=== PATIENT | male | born 1965 | race Caucasian/White ===

== ENCOUNTER 2018-07-31 13:01 | Emergency (ER) | payer BC, SELFPAY ==
[2018-07-31 13:02] VITALS: BP 151/77; PULSE 84; RESP 16; TEMP 36.4; O2SAT 98; BMI 28.0
--- NOTE | 2018-07-31 14:00 | ED.DCSUM_ITS ---
- ER Visit Summary Date of Service: 07/31/18 Chief Complaint: Right long finger injury versus a sledgehammer History of Present Illness: The patient is a 53 M who states he is ambidextrous. Was using a sledgehammer in his left hand at home building something and accidentally hit his right long finger. He has a laceration just proximal to the nail on the dorsal side. Denies other injuries. Tetanus is greater than 10 years old and will need to be updated. Physical Examination: Vital signs stable. Afebrile. H EENT exam unremarkable. Neck nontender no lymphadenopathy. Lungs clear to auscultation bilaterally. Heart regular rhythm no murmur. Chest wall nontender. Abdomen soft nontender. Right hand the long finger on the dorsal surface just proximal nail he has a C -shaped laceration. There does appear to be injury to that nail itself is subungual hematoma. He has full range of motion all digits of the hand. Neurovascularly intact with cap refill and touch sensation. Test Results: X-ray right long finger 2 views open fracture mid distal phalanx. Emergency Department Course and Treatment: Tetanus shot updated. Procedure note : Right long finger laceration. Digital block by ER using lidocaine. I removed the nail. There was significant damage to the nail matrix and the nail bed. Using 4 simple interrupted 5-0 Ethilon sutures I pulled the laceration back together which gave good bone coverage. Patient tolerated procedure well. He understands extremely high likelihood that he never has a nail grow there again. Nurses will clean and dress the wound. The situation and tube gauze. Prior laceration repair the wound was cleaned with iodine and copiously irrigated and explored with saline. Patient be treated with [place] for pain 20 no refill. Ice and elevate. Keflex 4 times a day for 5 days try to prevent infection. Follow-up with Dr.Anne Metzger Impression: Right long finger open fracture distal phalanx Right long finger nail bed and laceration repair of 2 cm. Tetanus updated This note was generated with [employer] dictation software. It may contain incorrect words, spelling, and punctuation that were not noted in review of the chart prior to signing ED Disposition - Plan for ED Patient: Disposition: Home or Assisted Living Chief Complaint: Trauma Instructions: ED Fx Finger Open Prescriptions: Cephalexin [Keflex] 500 mg PO Q6 #20 cap Hydrocodone/Acetaminophen [[place] 5-325 Tablet] 1 - 2 ea PO 4X/DAY PRN PRN 3 Days #20 tab PRN Reason: Pain Referrals: Jason Chambers MD [Primary Care Provider] - Additional Instructions: Keep wound clean and no soaking in dirty water. Ice and elevate. Motrin and/or [place] for pain. Keep wound clean and dry. Watch for any signs of infection. Finish the antibiotic.
--- NOTE | 2018-07-31 14:10 | ED.RN ---
Addendum entered by Stephanie Del Toro 07/31/18 14:13: LOT #[id number], [id number] Original Note: ADACEL GIVEN BY THIS NURSE PER VOR[facility] BY DR DURHAM.
[2018-07-31] MEDS: HYDROcodone Bitartrate/Apap 5/325 Tablet PO (14:12)
--- NOTE | 2018-07-31 15:10 | ED.DEP ---
ED Disposition - Plan for ED Patient: Disposition: Home or Assisted Living Chief Complaint: Trauma Instructions: ED Fx Finger Open Prescriptions: Cephalexin [Keflex] 500 mg PO Q6 #20 cap Hydrocodone/Acetaminophen [[place] 5-325 Tablet] 1 - 2 ea PO 4X/DAY PRN PRN 3 Days #20 tab PRN Reason: Pain Referrals: Bailey Metzger DO [STAFF PHYSICIAN] - As soon as possible Additional Instructions: Keep wound clean and no soaking in dirty water. Ice and elevate. Motrin and/or [place] for pain. Keep wound clean and dry. Watch for any signs of infection. Finish the antibiotic. Stitches out in 10-14 days.
--- NOTE | 2018-07-31 15:31 | ED.RN ---
[facility] CHARTED IN PREVIOUS NURSING NOTE.
[2018-07-31 15:57] VITALS: BP 145/101; PULSE 68; RESP 18; O2SAT 94
== END 2018-07-31 15:59 | disposition home or self-care (01) ==
PROVIDERS: Emergency Provider Emergency Medicine; Family Provider Family Medicine; PCP Family Medicine
DX: S62.632B Displaced fracture of distal phalanx of right middle finger, initial encounter for open fracture (principal); W22.8XXA Striking against or struck by other objects, initial encounter; Y93.9 Activity, unspecified; Y92.9 Unspecified place or not applicable; Y99.9 Unspecified external cause status; Z23 Encounter for immunization; F32.9 Major depressive disorder, single episode, unspecified; Z72.0 Tobacco use; Z79.899 Other long term (current) drug therapy
CPT/HCPCS: 11750; 11760; 73140; 90471; 90715; 99284

== ENCOUNTER 2018-08-14 18:00 | Outpatient (RCR) | payer BC, SELFPAY ==
--- NOTE | 2018-08-09 09:15 | HP.OTEVAL_ITS ---
Patient's Visit Information GRICELDA EID is a 53 year old M, referred to Occupational Therapy by FROILAN Rene, with a diagnosis of right MF distal phalanx fx-tuff fx.. Date of Evaluation: 08/09/18 Occupational Therapist: Etta Mariscal, MIHAELAR/Zaki, CHT - Subjective Subjective: Pt state on Tuesday 9- pt hit his finger with a hammer. went to ER and refered to [facility] for follow up. 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 Pt states his finger does throb most of the time- he has been attempting to type and use his hand for all BADls and IADLS and has noticed he is unable to perfrom the tasks as fast or as easily. pt works an hour and a half a [address] from [place]. would like HEP one stitches are removed. - Pain right MF 4 Pain Intensity Range: 0, 8, 9 - ROM ROM Comments: pt demo limited right MF DIP ROM at this time- PIP is WFL. left WNL - Strength Strength Comments: will test later date-as fx is healing - Hand/Wrist Evaluation Total Score of Pain & Functional Sections: 63 - Goals Goal:: pt will report pain no greater than 2/10 with use of right hand with BADLs and IADLs by D/C Goal:: pt will report no right MF tip sensitivity while performing ADLS and IADLS by d/c Goal:: Stitches removed and pt demo understanding of wound care until finger tip heals by d/c Goal:: pt will demo understanding or splint use by end on 1st visit. - Rehabilitation General Assessment: pt arrives with splint on right MF-stitches intact nail on- pt demo need to have stiches removed. theapist able to remove two stitches at this time. pt to return for further wound care and stitch removal 1x week for 2 weeks. if pt has questions he is to call/or schedule earlier apt. onece stitches are removed pt will be instructed in HEP of wound care, ROM and PRE to be intitiated at week 4. pt demo understanding and agree to this POC. Rehabilitation Potential: Good - Anticipated Interventions Anticipated Interventions: A/AAROM/PROM, Triggerpoint Release, Desensitization, Sensory Retraining, Wound Care, Orthoses - Visit Plan Frequency: 1x/Week Duration: 2 Weeks TEXT: Thank you for the opportunity to evaluate your patient. For Medicare and Medicare HMO plans, please review the plan of care and approve it. It will need to be FAXED BACK to us at [phone] for Medicare purposes. Please let me know if there are questions or concerns regarding this plan of care. Physician Signature: Date:
--- NOTE | 2018-10-10 08:12 | HP.OT.NRP ---
HP - Discharge Summary - Patient Information GRICELDA EID was seen in my office for initial evaluation on 08/09/18. The following Plan of Care was established for this patient: Initial Frequency: 1x/Week Initial Duration: 2 Weeks - Anticipated Interventions Anticipated Interventions: A/AAROM/PROM, Triggerpoint Release, Desensitization, Sensory Retraining, Wound Care, Orthoses This patient was last seen in our office 08/14/18. Pertinent comments regarding their Occupational therapy will appear below: Pt. was seen for 2 visits only, pt did not return or schedule more visits. Due to timelapse in treatment session pt D/C at this time. At this point I will be discontinuing this patient from occupational therapy. I would be happy to see this patient again in the future if found appropriate by the physician. Thank you! Etta Mariscal, OTR/L, CHT
== END 2018-08-14 19:00 | disposition home or self-care (01) ==
LOC: OT 18:00
PROVIDERS: Family Provider Family Medicine; PCP Family Medicine; Visit Provider Physician Assistant
DX: S62.632D Displaced fracture of distal phalanx of right middle finger, subsequent encounter for fracture with routine healing (principal)
CPT/HCPCS: 97166; 97530

== ENCOUNTER 2018-10-02 18:14 | Emergency (ER) | payer BC, SELFPAY ==
[2018-10-02 18:15] VITALS: BP 119/85; PULSE 76; RESP 20; TEMP 37.2; O2SAT 95; BMI 28.1
[2018-10-02 19:07] VITALS: RESP 20; O2SAT 97
[2018-10-02 19:10] VITALS: O2SAT 97
[2018-10-02] MEDS: predniSONE 20 MG Tablet 60 MG PO (19:24)
--- NOTE | 2018-10-02 19:55 | RAD_ITS ---
STUDY: X-RAY CHEST REASON FOR EXAM: Male, 53 years old. Cough, SOB. TECHNIQUE: PA and lateral chest. COMPARISON: 03/31/2009. FINDINGS: The lungs are clear and expanded. There is no demonstrated pleural abnormality. Normal size heart. Normal mediastinum and khris. Normal visualized pulmonary arteries. Normal visualized aortic arch and descending thoracic aorta. Normal visualized thoracic spine. Normal visualized ribs, clavicles, and shoulders. There is no demonstrated abnormality of the visualized soft tissue structures of the upper abdomen. RAD/Chest PA and Lateral IMPRESSION: Normal x-ray examination of the chest. Electronically Signed: Radha Jacome MD at 20:21 EST Tel , Service support ,
[2018-10-02] MEDS: Albuterol 2.5 MG/3 ML VIAL.NEB. INHALATION ×2 (20:21)
[2018-10-02] MEDS: Ipratropium/Albuterol Sulfate 3 ML AMPUL.NEB INHALATION (20:21)
[2018-10-02 20:23] VITALS: PULSE 70; PULSE 74; RESP 16
--- NOTE | 2018-10-02 21:14 | ED.RN ---
Called RT at [phone] for albuterol dispense with education.
--- NOTE | 2018-10-02 21:19 | ED.VISSUMM ---
- ER Visit Summary Date of Service: 10/02/18 Chief Complaint: Cough, wheezing History of Present Illness: The patient is a 53 M with a one-week history of cough, congestion, sneezing. It then moved down into chest congestion approximately 4 days ago. Patient reports clear or sometimes yellow colored sputum with cough. He reports his temperature has been low. He does report history of frequent pneumonia however his last episode of pneumonia was approximately 15 years ago. Patient is a long-term smoker but has never been diagnosed with COPD. Physical Examination: Blood pressure is 119/85, temperature 98.9, heart rate 76, respiratory rate 20, pulse ox 97% on room air. Patient sitting upright in bed no acute distress. He is nontoxic appearing. Heart is regular rate and rhythm. Lung sounds with expiratory wheezes throughout. Abdomen is soft nontender. Extremity examination was no calf tenderness or edema. Test Results: Two-view chest x-ray is unremarkable with no focal infiltrate. Emergency Department Course and Treatment: Patient was given a cycle of aerosols along with p.o. prednisone. On repeat evaluation wheezing is significantly improved. On final repeat evaluation wheezing had started to increase again. He was given an albuterol MDI with spacer. He is placed on a prednisone taper at home and will be placed on doxycycline. My suspicion is that he has underlying COPD that is yet to be diagnosed. Treatment Plan: [] Disposition: Discharge Impression: Bronchitis with suspected COPD This note was generated with [employer] dictation software. It may contain incorrect words, spelling, and punctuation that were not noted in review of the chart prior to signing ED Disposition - Plan for ED Patient: Disposition: Home or Assisted Living Chief Complaint: Shortness of Breath Instructions: Acute Bronchitis Prescriptions: Prednisone 10 mg PO UD #33 tablet Doxycycline Monohydrate 100 mg PO BID #20 capsule Referrals: Jason Chambers MD [Primary Care Provider] - 5-7 Days
[2018-10-02] MEDS: Doxycycline 100 MG CAPSULE PO (21:27)
[2018-10-02 21:29] VITALS: BP 120/86; PULSE 80; RESP 18; O2SAT 96
== END 2018-10-02 21:29 | disposition home or self-care (01) ==
PROVIDERS: Emergency Provider Emergency Medicine; Family Provider Family Medicine; PCP Family Medicine
DX: J40 Bronchitis, not specified as acute or chronic (principal); F17.200 Nicotine dependence, unspecified, uncomplicated; F32.9 Major depressive disorder, single episode, unspecified; Z79.899 Other long term (current) drug therapy; Z87.01 Personal history of pneumonia (recurrent)
CPT/HCPCS: 71046; 94640; 99283

== ENCOUNTER → 2018-10-17 14:54 | Outpatient (CLI) | payer BC, SELFPAY ==
[2018-10-02 18:15] VITALS: BMI 28.1
--- NOTE | 2018-10-17 14:56 | RAD_ITS ---
STUDY: X-RAY - RIGHT HAND, ATTENTION THIRD FINGER REASON FOR EXAM: Male, 53 years old. Fracture TECHNIQUE: 3 view(s) of the finger were obtained. COMPARISON: None. FINDINGS: Normal metacarpal head. Normal metacarpophalangeal joint. Normal proximal phalanx. Normal middle phalanx. Acute comminuted fracture of the distal phalanx of the diaphysis and distal metaphyses. Hairline extension into the proximal metaphyses. No disruption of articular surface. Adjacent soft tissue injury. There is no radiopaque foreign body. Normal proximal interphalangeal joint. Normal distal interphalangeal joint. RAD/Finger(s) Min 2 Views IMPRESSION: Acute comminuted fracture of the distal third phalanx. Electronically Signed: Irene Mitchell MD at 7:09 EST , Service support ,
== END ==
PROVIDERS: Family Provider Family Medicine; PCP Family Medicine; Visit Provider Orthopaedic Surgery
DX: S62.639B Displaced fracture of distal phalanx of unspecified finger, initial encounter for open fracture (principal); X58.XXXA Exposure to other specified factors, initial encounter; Y93.9 Activity, unspecified; Y92.9 Unspecified place or not applicable; Y99.9 Unspecified external cause status
CPT/HCPCS: 73140

== ENCOUNTER 2018-11-15 07:08 | Day surgery (SDC) | payer BC, SELFPAY ==
[2018-11-15 07:29] VITALS: BP 122/83; PULSE 79; RESP 18; TEMP 36.8; O2SAT 98; BMI 27.1
[2018-11-15] MEDS: Cefadroxil 500 MG CAPSULE 1000 MG PO (07:35)
--- NOTE | 2018-11-15 08:15 | DCINST_ITS ---
Discharge Diet: No Restrictions - follow up with OT in one week for initial dressing change, follow up in our office with jose conner or myself in 2 weeks, call with concerns Discharge Activity: May Not Drive May shower in (days): 1 Ice area for (Minutes): 20 - Every hour while awake. Weight Bearing Status: Weight bearing as tolerated Keep extremity elevated above heart level: Operative Extremity Call your doctor if your incision/area has: Continuous Slow Oozing, Sudden Increased Bleeding, Increased Pain/ Swelling, Increased Redness, Foul Smelling Discharge Call your doctor if you observe: Fever of 101 or Higher, Coldness, Increased Pain, Numbness or Tingling, Change in Color, Calf discomfort Allergies/Adverse Reactions: Allergies No Known Allergies Allergy (Verified 11/13/18 10:51) Medications to take at Discharge Duloxetine Hcl [Cymbalta] 60 - 120 mg PO DAILY 07/31/18 Primary Care Physician: Jason Chambers MD [Primary Care Provider] - Test Results: Test results from this visit will be discussed in further detail at your follow- up appointment, if applicable. Please Follow Up With: Bailey Metzger, - [phone]
--- NOTE | 2018-11-15 08:15 | PCM.OPRPT ---
Report of Operation Date of Procedure: 11/15/18 Pre-Operative Diagnosis: right middle finger dystrophic nail Post-Operative Diagnosis: same Surgery/Procedure Performed:: right middle finger nailbed removal/chemical ablation of matrix Type of Anesthesia:: Local Specimen's removed: tt- 8 mins Estimated Blood Loss (mL): minimal Fluids Replaced: - Description of Procedure: Preop note Patient is a 53-year-old male who had a crush injury to his right middle finger. Patient's noted that the nail started to grow and was painful and sharp and was catching on things affecting his activities of daily living. Risks benefits and alternatives were discussed with patient. Risks including but not limited to blood loss, blood clot, infection, neurovascular, failure procedure, loss of life and loss of limb. Patient is aware like to proceed with removal of nail matricectomy the risk is that the nail returns however we will use silver nitrate this was discussed with patient as well. Operative note Patient seen and evaluated preop holding area. Right middle finger was preoperatively received a local block by myself. He then was brought to the operating placed supine on the operating table. Patient received p.o. antibiotics in the preop holding area as well. Patient brought to the operating room placed upon the operating table. All bony prominences well-padded SCDs placed on his bilateral lower extremity. We then prepped the right arm in standard fashion timeout was performed. We then used a freer elevator to elevate the entire nail and down to the matrix. Then used a knife to truncated at the ulnar border was a little bit tight in that area. His nailbed itself was quite jagged and scarred in from the initial crush injury that he is sustained. We then debrided this any kind of rough area back with with a knife and [place]. We then used silver nitrate to ablate the matrix for chemical matricectomy. We use a slight bit of irrigation just to clean off any kind of wound ears. Issues. Sterile dressings were applied tourniquet was removed for total working time of 8 minutes. Patient tolerated procedure well no comp occasions transferred to recovery room in stable condition. Next Postoperative note Dressing intact Follow-up in 1 week with occupational therapy for dressing change Pharmacy has prescriptions Call with increased pain numbness tingling or further issues arise This note was generated with [employer] software. It may contain incorrect words, spelling, and punctuation that were not noted in checking the note before signing.
[2018-11-15] MEDS: Mupirocin Ointment 22gm Tube 1 APPLIC (08:34)
[2018-11-15] MEDS: Silver Nitrate (BKC) 1 EACH (08:34)
--- OUTSIDE RECORDS SUMMARY | 2019-02-16 07:59 | XMS RPT_ITS ---
:1965 Author Organization [place] Support Name Relationship Address Phone [employer] Unavailable [address] + [address] [place] [address] KEMAR EIDKY Unavailable [address] + [place] [address] [employer] Unavailable [address] + [address] [place] [address] KEMAR EIDKY Unavailable [address] + [place] [address] [employer] Unavailable [address] + [address] [place], [place] [address] RAGINI, TOBY Unavailable [address] + [place] [address] [employer] Unavailable [address] + [address] [place] [id number] RAGINI, TOBY Unavailable [address] + [place] [address] [employer] Unavailable [address] + [address] [place] [address] KEMAR EIDKY Unavailable [address] + [place] [address] [employer] Unavailable [address] + [address] [place] [id number] RAGINI TOBY Unavailable [address] + [place] [address] [employer] Unavailable [address] + [address] [place] [id number] RAGINI TOBY Unavailable [address] + [place], [facility] [employer] Unavailable [address] + [address] [place] [address] POMARICO, TOBY Unavailable [address] + [place] [address] [employer] Unavailable [address] + [address] [place] [address] POMARICO, TOBY Unavailable [address] + [place] [address] [employer] Unavailable [address] + [address] [place] [address] POMARICO, TOBY Unavailable [address] + [place] [address] [employer] Unavailable [address] + [address] [place] [address] POMARICO, TOBY Unavailable [address] + [place] [address] [employer] Unavailable [address] + [address] [place] [address] POMARICO, TOBY Unavailable [address] + [place] [address] Care Team Providers Name Role Phone Bailey Metzger Attending Unavailable Bailey Metzger Referring Unavailable [employer], Jason Primary Care Unavailable Bailey Metzger Attending Unavailable [employer], Jason Referring Unavailable [employer], Jason Primary Care Unavailable Tommie Kenny Attending Unavailable Delon Reno Attending Unavailable [employer], Jason Referring Unavailable [employer], Jason Primary Care Unavailable Delon Reno Attending Unavailable [employer], Jason Referring Unavailable Delon Reno Attending Unavailable [employer], Jason Primary Care Unavailable Delon Reno Attending Unavailable Delon Reno Referring Unavailable [employer], Jason Primary Care Unavailable Delon Reno Attending Unavailable [employer], Jason Referring Unavailable [employer], Jason Primary Care Unavailable [employer], Jason Primary Care Unavailable Keyonna Verdin Attending Unavailable Bailey Metzger Attending Unavailable [employer], Jason Referring Unavailable Bailey Metzger Attending Unavailable [employer], Jason Primary Care Unavailable Bailey Metzger Attending Unavailable Bailey Metzger Referring Unavailable [employer], Jason Primary Care Unavailable PROBLEMS PROBLEMS DATE TYPE CONDITION / CODE ATTENDING STATUS SOURCE 12/11/2018 Unknown S69.90XA - Delon Reno Active [facility] Unspecified injury Community of unspecified Hospital wrist, hand and Repository finger(s), initial encounter / S69.90XA(ICD-10) 12/11/2018 Unknown Z98.890 - Other [place], Active [place] specified [facility] postprocedural Hospital states / Repository Z98.890(ICD-10) 11/15/2018 Unknown G89.18 - Other acute [place]lli, Active [place] [facility] / G89.18(ICD-10) Hospital Repository 10/17/2018 Unknown S62.639B - Displaced [place]lli, Active [place] fracture of distal Bailey Community phalanx of Hospital unspecified finger, Repository initial encounter for open fracture / S62.639B(ICD-10) 10/10/2018 Unknown S62.632D - Displaced Delon Reno Active [place] fracture of distal Community phalanx of right Hospital middle finger, Repository subsequent encounter for fracture with routine healing / S62.632D(ICD-10) 07/31/2018 Unknown S62.609B - Fracture Tommie Kenny Active [place] of unspecified Community phalanx of Hospital unspecified finger, Repository initial encounter for open fracture / S62.609B(ICD-10) PROCEDURES PROCEDURES No Procedure Records FoundRESULTS RESULTS ORTHOPEDIC VISIT Observed: 12/15/2018 Status: F Source: WEST REPORT 3:56 PM [facility] REPOSITORY [facility] [address] [place] [address] OFFICE VISIT Date of Service: 12/11/18 MR#: [id number] Acct: [id number] Name: GRICELDA EID Rep #: [id number] : 1965 Provider: FROILAN Reno Age/Sex: 53/M [place] [facility] [place] [place]: Signed Intake Vital Signs12/11/18 Body Mass Index (BMI) 27.1 Intake Visit Reasons: Right Hand Is patient in pain?: Yes Pain scale (1-10): 4 Allergies No Known Allergies Allergy (Verified 11/13/18 10:51) Medications Duloxetine Hcl [Cymbalta] 60 - 120 mg PO DAILY 07/31/18 [History Confirmed 11/13/18] cephalexin 500 mg tablet 500 mg PO Q6H #28 tab 12/11/18 [Rx Confirmed 12/11/18] doxycycline hyclate 100 mg capsule 100 mg PO BID #14 cap 12/11/18 [Rx Confirmed 12/11/18] COUNT INCLUDES THE [facility] Surgical History s/p right finger nail removal (Acute) Social History Smoking Status: Current every day smoker HPI Right Hand: Details: GRICELDA EID is a 53 year old M here today for f/u right middle finger nail bed removal. He has been soaking at home and going to OT. He completed his antibiotics on tuesday and on tuesday he was snow blowing his driveway, after he removed his bandaid and it was soaked in blood. He has been having clear fluid oozing but now it is bloody and yellow tinged. It is painful to touch and he has redness and swelling at the distal finger. Ortho Exam Right Wrist/Hand Skin/Wound: Yes Swelling, No Ecchymosis, Yes wound cleaned, No nail intact Contralateral Normal: Yes Right Wrist: No ROM-Extension 0-60, ROM-Flexion 0-80, ROM- Pronation 0-80 or ROM-Supination 0-90 Sensation: Radial: I, Ulnar: I, Median: I WRIST: Today in the office patient does have some mild swelling of the distal phalanx of the right middle finger. Patient does have a black colored eschar over the proximal nail bed that is touching the adjacent cuticle. This eschar is as a result of the silver nitrate used in the procedure. There is no evident purulent discharge noted at this time. On palpation I am able to produce a little very clear fluid with minor blood coloration from proximal and just lateral to the eschar. The skin that is swollen is slightly more pink at the same time no major erythema. He does have some tenderness on palpation of the proximal nail bed over the eschar. He has some tenderness on the extensor surface of the distal phalanx as well. Flexion and extension is intact. He does have normal sensation throughout the finger. Left Wrist/Hand Skin/Wound: Yes Swelling, No Ecchymosis Assessment AND Plan Problems 1. Open nondisplaced fracture of distal phalanx of right middle finger with routine healing, subsequent encounter I02.636T 2. Orthopedic aftercare Z47.89 Plan At this point patient appears to be doing pretty well post nail matrixectomy. 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 He thought that there was a little bit of pus discharge from the area but was a small amount and states now it is all clear with some blood mixed in. At this time I was able to debride some of the proximal SR to get to the underlying bed in order to culture the base. Also with palpation was able to get some clear discharge to present itself and was also cultured. Does not appear that this is infectious possibly irritated from just overuse. We will have him start antibiotics and will notify him of his culture results once available. He can continue with normal care instructions given for wound care. Orders Orders: Medications New: Plan Detail Follow Up 1 Week Coding Level of Care Code Global Post Op Diagnoses Open nondisplaced fracture of distal phalanx of right middle finger with routine healing, subsequent encounter S62.662D Encounter type: subsequent encounter Finger: middle finger Fracture alignment: nondisplaced Fracture healing: with routine healing Orthopedic aftercare Z47.89 12/15/18 1556 <Electronically signed by Delon MCGOVERN> Date Delon MCGOVERN Cosigner Signature: Date (if applicable) CC: Observed: 12/11/2018 Status: F Source: [facility] CULTURE, DEEP WOUND 4:29 PM [facility] REPOSITORY Comments: Anaerobic and Aerobic bacteria Gram Stain Gram Stain No organisms seen Rare Red Blood Cells Wound Culture No growth aerobically. Cult, Anaerobic No growth in 5 days. Performed By: #### M100.1500 #### [facility] [address] [place], [address] ORTHOPEDIC VISIT Observed: 11/30/2018 Status: F Source: JULIO REPORT 2:49 PM [facility] REPOSITORY [facility] [address] [place] [address] OFFICE VISIT Date of Service: 11/30/18 MR#: [id number] Acct: [id number] Name: GRICELDA EID Rep #: [id number] : 1965 Provider: Bailey Metzger DO Age/Sex: 53/M [place] [facility] [place] Status: Signed Intake Intake Visit Reasons: right finger Allergies No Known Allergies Allergy (Verified 11/13/18 10:51) Medications Duloxetine Hcl [Cymbalta] 60 - 120 mg PO DAILY 07/31/18 [History Confirmed 11/13/18] cephalexin 500 mg capsule 500 mg PO .QID 10 Days #40 cap 11/30/18 [Rx Confirmed 11/30/18] PFSH Surgical History s/p right finger nail removal (Acute) Social History Smoking Status: Current every day smoker HPI right finger: Details: GRICELDA EID is a 53 year old M here today for s/p right finger nail removal dos 11/15/18. Patient notes that he is doing okay but has tenderness over his nailbed. He denies taking any pain medication. He has been keeping his finger clean and dry. Patient denies any fevers or chills. He states that he continues to have some drainage from his nail. Patient denies any OT. Denies numbness, tingling or other associated symptoms. ROS Const Reports system reviewed and no additional complaints, except as docu Eyes Reports system reviewed and no additional complaints, except as docu ENT Reports system reviewed and no additional complaints, except as docu Card Reports system reviewed and no additional complaints, except as docu Resp Reports system reviewed and no additional complaints, except as docu GI Reports system reviewed and no additional complaints, except as docu Reports system reviewed and no additional complaints, except as docu Skin/Breast Reports system reviewed and no additional complaints, except as docu Neuro Yes system reviewed and no additional complaints, except as docu Psych Reports system reviewed and no additional complaints, except as docu Endo Reports system reviewed and no additional complaints, except as docu Ortho Exam Right Wrist/Hand Motor: EPL: 5, FDP-2: 5, 1st Dorsal Interosseous: 5, APB: 5 Sensation: Radial: I, Ulnar: I, Median: I WRIST: right middle finger drainage, left index finger chronic hematoma and nail avulsion Assessment AND Plan 1. Orthopedic aftercare Z47.89 Plan patient has some drainage at nailbed removal site so was placed on keflex for 10 days ([facility]) and sent today to OT for soaks/debridement/etc. patient will return in 10 days with jose wayt for further evaluation of surgical site. patient told if increased pain or redness next week may have to go to ER as office is closed. patient will also have left had index finger looked at for possible nail debridement for chronic hematoma/avulsion. All questions answered. Patient in agreement of plan. Follow up in 10 days with jose wayt or sooner if pain, swelling, numbness or associated symptoms, or concerns develop. Personally reviewed the surgical images if available, the surgery procedure and reviewed the post op care instructions. Monitor for signs of infection, redness, warmth, swelling in excess, drainage, opening of incision site/sites, and/or fever. All questions answered. Patient in agreement of plan.Follow up in 4 weeks for 6 week post op or sooner if pain, swelling, numbness or associated symptoms, or concerns develop. Plan Detail Other Medications New: cephalexin take one tab by mouth with [id number] mg PO .QID 10 days 40 caps 0RF infection every 6 hours for 10 days, call with concern s Coding Level of Care Code Global Post Op Diagnoses Orthopedic aftercare Z47.89 11/30/18 1449 <Electronically signed by Bailey Metzger DO> Date Bailey Ramsay Signature: Date (if applicable) CC: OT GENERAL EVALUATION Observed: 11/23/2018 Status: F Source: JULIO 6:24 PM [facility] REPOSITORY [facility] Occup[facility] Therapy [facility] [place] [address] / REHABILITATION SERVICES INITIAL EVALUATION MR#: [id number] Acct: [id number] Name: GRICELDA EID Rep #: [id number] : 1965 53 From: Xiomy Sandhu Referring Dr.: Bailey Metzger DO Status: REG RCR Insurance: JESSEE Sharma Date: SELF PAY INSURANCE Patient's Visit Information GRICELDA EID is a 53 year old M, referred to Occupational Therapy by Bailey Metzger DO, with a diagnosis of p/o nail removal. Date of Evaluation: 11/23/18 Occupational Therapist: Xiomy Sandhu - Subjective Subjective: Pt seen for initial occupational therapy evaluation for wound debridement after smashing R middle finger in July and had nail removed 11/15/18. Right hand dominent. Pt states R middle finger larsen often and he has difficulty typing for his job due to the bandage on his finger. - Pain R tip middle finger 5 - Objective Objective/Observation: wound nail bed tip of R middle finger, demo good healing. - ROM PIP: R middle finger PIP 0/80 L PIP 0/92' DIP: R middle finger DNT, L 0/57' - Edema PIP: Slight edema noted R middle finger PIP DIP: Edema noted R middle finger DIP - Sensation Sensation Comments: No numbness or tingling - Goals Goal:: Pt will progress with R middle finger PIP AROM flexion by 10' and DIP flexion by 15' to increase functional independence to type on computer and complete BADLs. Goal:: Pt will be educated on wound care and self bandaging techniques for R middle finger at home with good understanding and demo 100%x Goal:: Pt will be educated on HEP for R middle finger with good understanding and demo 100%x to increase AROM R middle finger - Rehabilitation General Assessment: Pt demo wound R middle finger nail from nail removal. Pt would benefit from direct occupational therapy services for wound debridement, education on wound care for at home and increase AROM R middle finger Rehabilitation Potential: Excellent - Anticipated Interventions Anticipated Interventions: A/AAROM/PROM, Wound Care, Education re Diagnosis, Education re Self-Bandaging Techniques, Education re Skin Care and Precautions, Home Program - Visit Plan Frequency: 1-2x /Week Duration: 4-6 Weeks General Plan: Pt would benefit from direct occupational therapy services for wound debridement, education on wound care for at home, self bandaging techniques and increase AROM R middle finger TEXT: Thank you for the opportunity to evaluate your patient. For Medicare and Medicare HMO plans, please review the plan of care and approve it. It will need to be FAXED BACK to us at [phone] for Medicare purposes. Please let me know if there are questions or concerns regarding this plan of care. Physician Signature: Date: <Electronically signed by Xiomy Sandhu > 11/23/18 1828 CC: Bailey Metzger DO; Jason Chambers MD [facility] Signed For Medicare only, by signing this I certify the plan of care. Physicians Signature Date OPERATIVE REPORT Observed: 11/16/2018 Status: F Source: WEST 6:51 PM [facility] REPOSITORY [facility] Medical Records Department [address] [place] [address] Operative Report 11/15/18 0815 MR#: [id number] Acct: [id number] Name: GRICELDA EID Rep #: [id number] : 1965 53 From: Bailey Metzger DO PCP: Jason Chambers MD Status: [facility] [place] [facility] [place] of Operation Date of Procedure: 11/15/18 Pre-Operative Diagnosis: right middle finger dystrophic nail Post-Operative Diagnosis: same Surgery/Procedure Performed:: right middle finger nailbed removal/chemical ablation of matrix Type of Anesthesia:: Local Specimen's removed: tt- 8 mins Estimated Blood Loss (mL): minimal Fluids Replaced: - Description of Procedure: Preop note Patient is a 53-year-old male who had a crush injury to his right middle finger. Patient's noted that the nail started to grow and was painful and sharp and was catching on things affecting his activities of daily living. Risks benefits and alternatives were discussed with patient. Risks including but not limited to blood loss, blood clot, infection, neurovascular, failure procedure, loss of life and loss of limb. Patient is aware like to proceed with removal of nail matricectomy the risk is that the nail returns however we will use silver nitrate this was discussed with patient as well. Operative note Patient seen and evaluated preop holding area. Right middle finger was preoperatively received a local block by myself. He then was brought to the operating placed supine on the operating table. Patient received p.o. antibiotics in the preop holding area as well. Patient brought to the operating room placed upon the operating table. All bony prominences well-padded SCDs placed on his bilateral lower extremity. We then prepped the right arm in standard fashion timeout was performed. We then used a freer elevator to elevate the entire nail and down to the matrix. Then used a knife to truncated at the ulnar border was a little bit tight in that area. His nailbed itself was quite jagged and scarred in from the initial crush injury that he is sustained. We then debrided this any kind of rough area back with with a knife and [place]. We then used silver nitrate to ablate the matrix for chemical matricectomy. We use a slight bit of irrigation just to clean off any kind of wound ears. Issues. Sterile dressings were applied tourniquet was removed for total working time of 8 minutes. Patient tolerated procedure well no comp occasions transferred to recovery room in stable condition. Next Postoperative note Dressing intact Follow-up in 1 week with occupational therapy for dressing change Pharmacy has prescriptions Call with increased pain numbness tingling or further issues arise This note was generated with [employer] dictation software. It may contain incorrect words, spelling, and punctuation that were not noted in checking the note before signing. 11/16/18 0231 <Electronically signed by Bailey Metzger DO> Date Bailey Metzger DO CC: Bailey Metzger DO; Jason Chambers MD Signed DISCHARGE INSTRUCTION Observed: 11/15/2018 Status: F Source: JULIO 8:15 AM [facility] REPOSITORY [facility] Medical Records Department [address] [place] [address] Instructions for Home/Discharge Instructions 11/15/18812 MR#: [id number] Acct: [id number] Name: GRICELDA EID Rep #: [id number] : 1965 53 From: Bailey Metzger DO PCP: Jason Chambers MD Status: REG [place] Discharge Diet: No Restrictions - follow up with OT in one week for initial dressing change, follow up in our office with jose wilbertot or myself in 2 weeks, call with concerns Discharge Activity: May Not Drive May shower in (days): 1 Ice area for (Minutes): 20 - Every hour while awake. Weight Bearing Status: Weight bearing as tolerated Keep extremity elevated above heart level: Operative Extremity Call your doctor if your incision/area has: Continuous Slow Oozing, Sudden Increased Bleeding, Increased Pain/ Swelling, Increased Redness, Foul Smelling Discharge Call your doctor if you observe: Fever of 101 or Higher, Coldness, Increased Pain, Numbness or Tingling, Change in Color, Calf discomfort Allergies/Adverse Reactions: Allergies No Known Allergies Allergy (Verified 11/13/18 10:51) Medications to take at Discharge Duloxetine Hcl [Cymbalta] 60 - 120 mg PO DAILY 07/31/18 Primary Care Physician: Jason Chambers MD [Primary Care Provider] - Test Results: Test results from this visit will be discussed in further detail at your follow-up appointment, if applicable. Please Follow Up With: Bailey Metzger DO - [phone] 11/15/18814 <Electronically signed by Bailey Metzger DO> Date Bailey Metzger DO CC: Jason Chambers MD ORTHOPEDIC VISIT Observed: 10/24/2018 Status: F Source: JULIO REPORT 2:35 PM [facility] REPOSITORY [facility] Orthopa[facility]ics AND Sports Medicine [address] [place] [address] [address] [place] [address] OFFICE VISIT Date of Service: 10/17/18 MR#: [id number] Acct: [id number] Name: GRICELDA EID Rep #: [id number] : 1965 Provider: Bailey Metzger DO Age/Sex: 53/M [place] [facility] [place] Status: Signed Intake Intake Visit Reasons: RIGHT HAND Is patient in pain?: No Allergies No Known Allergies Allergy (Verified 10/17/18 15:10) Medications Duloxetine Hcl [Cymbalta] 60 - 120 mg PO DAILY 07/31/18 [History Confirmed 10/17/18] PFSH Social History Smoking Status: Current every day smoker HPI RIGHT HAND: Details: GRICELDA EID is a 53 year old M here today for a followup on his right middle finger. He states that he has numbness over the tip of his finger. He states that when his finger gets cold the tip of his finger larsen. Patient has good finger range of motion. Patient is back to all activities. Patient is having issues with where how the nail is growing back after his injury and would like to discuss options. ROS Const Reports system reviewed and no additional complaints, except as docu Eyes Reports system reviewed and no additional complaints, except as docu ENT Reports system reviewed and no additional complaints, except as docu Card Reports system reviewed and no additional complaints, except as docu Resp Reports system reviewed and no additional complaints, except as docu GI Reports system reviewed and no additional complaints, except as docu Reports system reviewed and no additional complaints, except as docu Musc Reports joint pain Skin/Breast Reports system reviewed and no additional complaints, except as docu Neuro Yes system reviewed and no additional complaints, except as docu Psych Reports system reviewed and no additional complaints, except as docu Endo Reports system reviewed and no additional complaints, except as docu Ortho Exam Right Wrist/Hand Contralateral Normal: Yes Right Wrist: Yes ROM-Extension 0-60, ROM-Flexion 0-80, ROM- Pronation 0-80 and ROM-Supination 0-90 Motor: EPL: 5, FDP-2: 5, 1st Dorsal Interosseous: 5, APB: 5 Sensation: Radial: I, Ulnar: I, Median: I Assessment AND Plan Plan Instructed to work on desensitization, reviewed the risk and benefit of nail removal. Will have his f/u with OT two weeks after surgery. Reviewed the pre-operative plans with the patient. Risks and benefits of the procedure were fully explained, including but not limited to infection, neurovascular injury, continued pain, arthritis, stiffness, need for further surgery, re-injury, DVT, PE, general risks of anesthesia, and loss of limb or life. The patient understands all the risks and does wish to proceed with written consent. Follow up post op or sooner if pain, swelling, numbness or associated symptoms, or concerns develop. All questions answered. Patient in agreement of plan. Orders Orders: Coding Level of Care Code Off vis,est,level 4 10/24/18 1435 <Electronically signed by Bailey Metzger DO> Date Bailey Metzger DO Cosigner Signature: Date (if applicable) CC: FINGER(S) MIN 2 VIEWS Observed: 10/17/2018 Status: F Source: WEST 2:56 PM [facility] REPOSITORY [facility] Imaging Services [address] [place] [address] Finger(s) Min 2 Views MR#: [id number] Acct: [id number] Name: GRICELDA EID Rep #: [id number] : 1965 M 53 From: Irene Mitchell MD PCP: Jason Chambers MD Status: REG CLI Study: Finger(s) Min 2 Views Date of Exam: 10/17/18 Exam# [id number] Ordering Dr: Bailey Metzger DO STUDY: X-RAY - RIGHT HAND, ATTENTION THIRD FINGER REASON FOR EXAM: Male, 53 years old. Fracture TECHNIQUE: 3 view(s) of the finger were obtained. COMPARISON: None. FINDINGS: Normal metacarpal head. Normal metacarpophalangeal joint. Normal proximal phalanx. Normal middle phalanx. Acute comminuted fracture of the distal phalanx of the diaphysis and distal metaphyses. Hairline extension into the proximal metaphyses. No disruption of articular surface. Adjacent soft tissue injury. There is no radiopaque foreign body. Normal proximal interphalangeal joint. Normal distal interphalangeal joint. RAD/Finger(s) Min 2 Views IMPRESSION: Acute comminuted fracture of the distal third phalanx. Electronically Signed: Irene Mitchell MD at 7:09 EST , Service support , CC: Bailey Metzger DO; Jason Chambers MD Crystal Slicer: Signed OT D/C OF NON Observed: 10/10/2018 Status: F Source: [facility] PT 12:17 PM [facility] REPOSITORY [facility] Occupational Therapy [facility] [address] [place] [address]. [address] [place] [address] Fax REHABILITATION SERVICES DISCHARGE SUMMARY MR#: [id number] Acct: [id number] Name: GRICELDA EID Rep #: [id number] : 1965 53 From: Etta LOUIS/NOAH HainesT Referring DrLa: FROILAN Reno Status: REG RCR Eval Date: Discharge Date: HP - Discharge Summary - Patient Information GRICELDA EID was seen in my office for initial evaluation on 08/09/18. The following Plan of Care was established for this patient: Initial Frequency: 1x/Week Initial Duration: 2 Weeks - Anticipated Interventions Anticipated Interventions: A/AAROM/PROM, Triggerpoint Release, Desensitization, Sensory Retraining, Wound Care, Orthoses This patient was last seen in our office 08/14/18. Pertinent comments regarding their Occupational therapy will appear below: Pt. was seen for 2 visits only, pt did not return or schedule more visits. Due to timelapse in treatment session pt D/C at this time. At this point I will be discontinuing this patient from occupational therapy. I would be happy to see this patient again in the future if found appropriate by the physician. Thank you! Etta Mariscal, OTR/Zaik, CHT <Electronically signed by Etta LOUIS/Zaki CHT> 10/10/18 1217 CC: FROILAN Reno; Jason Chambers MD MK Signed EMERGENCY DEPARTMENT Observed: 10/03/2018 Status: F Source: WEST SUMMARY 2:16 AM [facility] REPOSITORY [facility] Medical Records Department [address] [place] [address] Emergency Department Summary 10/02/18 2119 MR#: [id number] Acct: [id number] Name: GRICELDA EID Rep #: [id number] : 1965 53 From: Keyonna Verdin MD PCP: Jason Chambers MD Status: DEP ER - ER Visit Summary Date of Service: 10/02/18 Chief Complaint: Cough, wheezing History of Present Illness: The patient is a 53 M with a one- week history of cough, congestion, sneezing. It then moved down into chest congestion approximately 4 days ago. Patient reports clear or sometimes yellow colored sputum with cough. He reports his temperature has been low. He does report history of frequent pneumonia however his last episode of pneumonia was approximately 15 years ago. Patient is a long-term smoker but has never been diagnosed with COPD. Physical Examination: Blood pressure is 119/85, temperature 98.9, heart rate 76, respiratory rate 20, pulse ox 97% on room air. Patient sitting upright in bed no acute distress. He is nontoxic appearing. Heart is regular rate and rhythm. Lung sounds with expiratory wheezes throughout. Abdomen is soft nontender. Extremity examination was no calf tenderness or edema. Test Results: Two-view chest x-ray is unremarkable with no focal infiltrate. Emergency Department Course and Treatment: Patient was given a cycle of aerosols along with p.o. prednisone. On repeat evaluation wheezing is significantly improved. On final repeat evaluation wheezing had started to increase again. He was given an albuterol MDI with spacer. He is placed on a prednisone taper at home and will be placed on doxycycline. My suspicion is that he has underlying COPD that is yet to be diagnosed. Treatment Plan: [] Disposition: Discharge Impression: Bronchitis with suspected COPD This note was generated with Disruptor Beam dictation software. It may contain incorrect words, spelling, and punctuation that were not noted in review of the chart prior to signing ED Disposition - Plan for ED Patient: Disposition: Home or Assisted Living Chief Complaint: Shortness of Breath Instructions: Acute Bronchitis Prescriptions: Prednisone 10 mg PO UD #33 tablet Doxycycline Monohydrate 100 mg PO BID #20 capsule Referrals: Jason Chambers MD [Primary Care Provider] - 5-7 Days What to do if you have Problems For any increased pain, shortness of breath, bleeding, nausea or vomiting, chest pain, or any unexpected problems, contact your Primary Care Provider. Call [facility] ([phone]) or report to the closest Emergency Room. Call 911 if necessary. 10/03/18 0216 <Electronically signed by Keyonna Verdin MD> Date Keyonna Verdin MD Cosigner Signature (If Indicated): Date CC: Jason Chambers MD DISCHARGE INSTRUCTION Observed: 10/02/2018 Status: F Source: WEST 9:20 PM [facility] REPOSITORY [facility] Medical Records Department [address] [place] [address] Discharge Instruction 10/02/18 2119 MR#: [id number] Acct: [id number] Name: GRICELDA EID Rep #: [id number] : 1965 53 From: Keyonna Verdin MD PCP: Jason Chambers MD Status: REG ER ED Disposition - Plan for ED Patient: Disposition: Home or Assisted Living Chief Complaint: Shortness of Breath Instructions: Acute Bronchitis Prescriptions: Prednisone 10 mg PO UD #33 tablet Doxycycline Monohydrate 100 mg PO BID #20 capsule Referrals: Jason Chambers MD [Primary Care Provider] - 5-7 Days What to do if you have Problems For any increased pain, shortness of breath, bleeding, nausea or vomiting, chest pain, or any unexpected problems, contact your Primary Care Provider. Call [facility] ([phone]) or report to the closest Emergency Room. Call 911 if necessary. 10/02/182119 <Electronically signed by Keyonna Verdin MD> Date Keyonna Verdin MD Cosigner Signature (If Indicated): Date CC: Jason Chambers MD CHEST PA AND LATERAL Observed: 10/02/2018 Status: F Source: WEST 6:20 PM [facility] REPOSITORY [facility] Imaging Services [address] [place] [address] Chest PA and Lateral MR#: [id number] Acct: [id number] Name: GRICELDA EID Rep #: [id number] : 1965 M 53 From: Radha Jacome MD PCP: Jason Chambers MD Status: REG ER Study: Chest PA and Lateral Date of Exam: 10/02/18 Exam# [id number] Ordering Dr: Keyonna Verdin MD STUDY: X-RAY CHEST REASON FOR EXAM: Male, 53 years old. Cough, SOB. TECHNIQUE: PA and lateral chest. COMPARISON: 03/31/2009. FINDINGS: The lungs are clear and expanded. There is no demonstrated pleural abnormality. Normal size heart. Normal mediastinum and khris. Normal visualized pulmonary arteries. Normal visualized aortic arch and descending thoracic aorta. Normal visualized thoracic spine. Normal visualized ribs, clavicles, and shoulders. There is no demonstrated abnormality of the visualized soft tissue structures of the upper abdomen. RAD/Chest PA and Lateral IMPRESSION: Normal x-ray examination of the chest. Electronically Signed: Radha Jacome MD at 20:21 EST Tel , Service support , CC: Keyonna Verdin MD; Jason Chambers MD Crystal Slicer: Signed ORTHOPEDIC VISIT Observed: 08/18/2018 Status: F Source: WEST REPORT 3:49 PM [facility] REPOSITORY [facility] Orthopaedics AND Sports Medicine [address] [place] [address] OFFICE VISIT Date of Service: 08/18/18 MR#: [id number] Acct: [id number] Name: GRICELDA EID Rep #: [id number] : 1965 Provider: FROILAN Reno Age/Sex: 53/M [place] [facility] [place] [place] Signed Intake Intake Visit Reasons: LEFT HAND Is patient in pain?: Yes Allergies No Known Allergies Allergy (Verified 08/04/18 10:22) Medications Cephalexin [Keflex] 500 mg PO Q6 #20 cap 07/31/18 [Rx] Duloxetine Hcl [Cymbalta] 60 - 120 mg PO DAILY 07/31/18 [History Confirmed 07/31/18] Hydrocodone/Acetaminophen [Sloan 5-325 Tablet] 1 - 2 ea PO 4X/DAY PRN PRN 3 Days #20 tab 07/31/18 [Rx] cephalexin 500 mg tablet 500 mg PO Q6H #20 tab 08/04/18 [Rx Confirmed 08/04/18] PFSH Social History Smoking Status: Current every day smoker HPI LEFT HAND: Details: GRICELDA EID is a 53 year old M here today for f/u on right middle finger cliff fracture. He has been to OT twice for wound care but his sutures are under the nail and it is not movable. He has pain to touch at the tip and the pad of his finger but no pain otherwise. He has good rom. Denies numbness, tingling or other associated symptoms. ROS Musc Reports joint pain, Reports joint swelling, Reports as per HPI Ortho Exam Right Wrist/Hand Skin/Wound: Yes Swelling (distal phalanx), No Ecchymosis, No nail intact (nail is lying on top of the bed) Sensation: Radial: I, Ulnar: I, Median: I WRIST: Patient has some mild swelling in the distal end of the middle finger. He has some tenderness on the flexor surface of the distal phalanx. The nail was set back on the nail bed but not sutured down. The nail now is actually pretty adhered to underlying bed (likely from dried blood). There is evidence of 2 underlying sutures (4 tails noted). he has good ROM of the PIP joint and actually the DIP as well. Left Wrist/Hand Skin/Wound: Yes Swelling (distal phalanx), No Ecchymosis Assessment AND Plan Problems 1. Open nondisplaced fracture of distal phalanx of right middle finger with routine healing, subsequent encounter S62.201S Plan Finger still has some minor swelling but is improved. The nail was slowly removed without any pains in order to get to the underlying sutures for removal. One suture had untied and was easily removed and the other had embedded into the skin. We did soak the finger and were able to remove the suture. Nonadherent dressing was applied to the finger. Keep clean and dry (monitor for any redness, swelling, or worsening pains) . I would recommend Rechecking X-rays in 4 weeks. Plan Detail Follow Up 4 Weeks Coding Level of Care Code Off vis,est,level 3 Diagnoses Open nondisplaced fracture of distal phalanx of right middle finger with routine healing, subsequent encounter S62.530A Encounter type: subsequent encounter Finger: middle finger Fracture alignment: nondisplaced Fracture healing: with routine healing 08/18/18 1549 <Electronically signed by Delon MCGOVERN> Date Delon MCGOVERN Cosigner Signature: Date (if applicable) CC: OT GENERAL EVALUATION Observed: 08/09/2018 Status: F Source: WEST 12:24 [facility] REPOSITORY [facility] Occupational Therapy [facility] [address] [place] [address] Fax REHABILITATION SERVICES INITIAL EVALUATION MR#: [id number] Acct: [id number] Name: GRICELDA EID Rep #: [id number] : 1965 53 From: Etta LOUIS/Zaki, NOAHT Referring Dr.: FROILAN Reno Status: REG RCR Insurance: ANTHEM Leanneor Date: SELF PAY INSURANCE Patient's Visit Information GRICELDA EID is a 53 year old M, referred to Occupational Therapy by FROILAN Rene, with a diagnosis of right MF distal phalanx fx-tuff fx.. Date of Evaluation: 08/09/18 Occupational Therapist: Etta Mariscal, MISSY/Zaki, CHT - Subjective Subjective: Pt state on Tuesday- pt hit his finger with a hammer. went to ER and refered to [facility] for follow up. 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 Pt states his finger does throb most of the time- he has been attempting to type and use his hand for all BADls and IADLS and has noticed he is unable to perfrom the tasks as fast or as easily. pt works an hour and a half [place] [address] [place]. would like HEP one stitches are removed. - Pain right MF 4 Pain Intensity Range: 0, 8, 9 - ROM ROM Comments: pt demo limited right MF DIP ROM at this time- PIP is WFL. left WNL - Strength Strength Comments: will test later date-as fx is healing - Hand/Wrist Evaluation Total Score of Pain AND Functional Sections: 63 - Goals Goal:: pt will report pain no greater than 2/10 with use of right hand with BADLs and IADLs by D/C Goal:: pt will report no right MF tip sensitivity while performing ADLS and IADLS by d/c Goal:: Stitches removed and pt demo understanding of wound care until finger tip heals by d/c Goal:: pt will demo understanding or splint use by end on 1st visit. - Rehabilitation General Assessment: pt arrives with splint on right MF-stitches intact nail on- pt demo need to have stiches removed. theapist able to remove two stitches at this time. pt to return for further wound care and stitch removal 1x week for 2 weeks. if pt has questions he is to call/or schedule earlier apt. onece stitches are removed pt will be instructed in HEP of wound care, ROM and PRE to be intitiated at week 4. pt demo understanding and agree to this POC. Rehabilitation Potential: Good - Anticipated Interventions Anticipated Interventions: A/AAROM/PROM, Triggerpoint Release, Desensitization, Sensory Retraining, Wound Care, Orthoses - Visit Plan Frequency: 1x/Week Duration: 2 Weeks TEXT: Thank you for the opportunity to evaluate your patient. For Medicare and Medicare HMO plans, please review the plan of care and approve it. It will need to be FAXED BACK to us at [phone] for Medicare purposes. Please let me know if there are questions or concerns regarding this plan of care. Physician Signature: Date: <Electronically signed by Etta YBARRA CHT> 08/09/18 1224 CC: FROILAN Reno; Jason Chambers MD MK Signed For Medicare only, by signing this I certify the plan of care. Physicians Signature Date ORTHOPEDIC VISIT Observed: 08/07/2018 Status: F Source: [place] REPORT 8:20 AM [facility] REPOSITORY [facility] Orthopaedics AND Sports Medicine [address] [place] [address] OFFICE VISIT Date of Service: 08/04/18 MR#: [id number] Acct: [id number] Name: GRICELDA EID Rep #: [id number] : 1965 Provider: FROILAN Reno Age/Sex: 53/M [place] [facility] [place] Status: Signed Intake Intake Visit Reasons: RIGHT HAND Is patient in pain?: Yes Allergies No Known Allergies Allergy (Verified 08/04/18 10:22) Medications Cephalexin [Keflex] 500 mg PO Q6 #20 cap 07/31/18 [Rx] Duloxetine Hcl [Cymbalta] 60 - 120 mg PO DAILY 07/31/18 [History Confirmed 07/31/18] Hydrocodone/Acetaminophen [Sloan 5-325 Tablet] 1 - 2 ea PO 4X/DAY PRN PRN 3 Days #20 tab 07/31/18 [Rx] cephalexin 500 mg tablet 500 mg PO Q6H #20 tab 08/04/18 [Rx Confirmed 08/04/18] PFSH Social History Smoking Status: Current every day smoker HPI RIGHT HAND: Details: GRICELDA EID is a 53 year old M here today for right middle finger. Patient notes that he tore his finger, by using a hammer and smashing his finger. Patient went to the ED due to it being crushed which happened on Tuesday. He had xrays which showed a fracture. Patient notes that he continues to have pain and throbbing. Patient had sutures placed. He changes his bandages daily. He denies any fevers or chills. He has not had any food or drink since midnight. Patient continues to take his cephalexin as prescribed. ROS Const Reports system reviewed and no additional complaints, except as docu Eyes Reports system reviewed and no additional complaints, except as docu ENT Reports system reviewed and no additional complaints, except as docu Card Reports system reviewed and no additional complaints, except as docu Resp Reports system reviewed and no additional complaints, except as docu GI Reports system reviewed and no additional complaints, except as docu Reports system reviewed and no additional complaints, except as docu Musc Reports joint pain Skin/Breast Reports system reviewed and no additional complaints, except as docu Neuro Yes system reviewed and no additional complaints, except as docu Psych Reports system reviewed and no additional complaints, except as docu Endo Reports system reviewed and no additional complaints, except as docu Ortho Exam Right Wrist/Hand Skin/Wound: Yes Swelling, Yes nail intact (intact but just placed on nail bed) Contralateral Normal: Yes Right Wrist: Yes ROM-Flexion 0-80 and ROM-Extension 0-60 Sensation: Radial: I, Ulnar: I, Median: I WRIST: There is evident sutures noted around the distal nail of the right middle finger. There does appear to be suture underneath the nail as well. The Nail itself is sitting on the nail bed and is not sutured down to the proximal or lateral skin. There is some mild swelling of the distal finger. There is no erythema or discharge from the wounds. Left Wrist/Hand Skin/Wound: Yes Swelling Assessment AND Plan Problems 1. Open nondisplaced fracture of distal phalanx of right middle finger, initial encounter S62.421H Plan PAtient has a cliff fracture of the right middle finger. The wounds are clean and dry today without any evidence of infection. The finger does not show any gross deformities and the swelling is actually very mild. We did review the X-rays in office again today and although the distal phalanx is comminuted, it is non-displaced. We discussed the healing process including the soft tissue and the fracture. We have to be very cautious and monitor the skin for infection. We are going to extend the antibiotic out to 10 days in length. We are also going to set him up for wound care at OT. He is to leave the nail overlying the nail bed and wear his splint daily. He is to have sutures removed in 7-10 days whether that it is with OT or here in our office. Medications New: Plan Detail Follow Up 10 Days Coding Level of Care Code Off vis,new,level 3 Diagnoses Open nondisplaced fracture of distal phalanx of right middle finger, initial encounter S62.928F Encounter type: initial encounter Finger: middle finger Fracture alignment: nondisplaced 08/07/18 0820 <Electronically signed by Delon MCGOVERN> Date Delon MCGOVERN Cosigner Signature: Date (if applicable) CC: EMERGENCY DEPARTMENT Observed: 07/31/2018 Status: F Source: WEST SUMMARY 3:45 [facility] REPOSITORY [facility] Medical Records Department [address] [place] [address] Emergency Department Summary 07/31/18 1358 MR#: [id number] Acct: [id number] Name: GRICELDA EID Rep #: [id number] : 1965 53 From: Tommie Kenny MD PCP: Jason Chambers MD Status: REG ER - ER Visit Summary Date of Service: 07/31/18 Chief Complaint: Right long finger injury versus a sledgehammer History of Present Illness: The patient is a 53 M who states he is ambidextrous. Was using a sledgehammer in his left hand at home building something and accidentally hit his right long finger. He has a laceration just proximal to the nail on the dorsal side. Denies other injuries. Tetanus is greater than 10 years old and will need to be updated. Physical Examination: Vital signs stable. Afebrile. H EENT exam unremarkable. Neck nontender no lymphadenopathy. Lungs clear to auscultation bilaterally. Heart regular rhythm no murmur. Chest wall nontender. Abdomen soft nontender. Right hand the long finger on the dorsal surface just proximal nail he has a C-shaped laceration. There does appear to be injury to that nail itself is subungual hematoma. He has full range of motion all digits of the hand. Neurovascularly intact with cap refill and touch sensation. Test Results: X-ray right long finger 2 views open fracture mid distal phalanx. Emergency Department Course and Treatment: Tetanus shot updated. Procedure note: Right long finger laceration. Digital block by ER using lidocaine. I removed the nail. There was significant damage to the nail matrix and the nail bed. Using 4 simple interrupted 5-0 Ethilon sutures I pulled the laceration back together which gave good bone coverage. Patient tolerated procedure well. He understands extremely high likelihood that he never has a nail grow there again. Nurses will clean and dress the wound. The situation and tube gauze. Prior laceration repair the wound was cleaned with iodine and copiously irrigated and explored with saline. Patient be treated with Sloan for pain 20 no refill. Ice and elevate. Keflex 4 times a day for 5 days try to prevent infection. Follow-up with Dr.Anne Metzger Impression: Right long finger open fracture distal phalanx Right long finger nail bed and laceration repair of 2 cm. Tetanus updated This note was generated with Disruptor Beam dictation software. It may contain incorrect words, spelling, and punctuation that were not noted in review of the chart prior to signing ED Disposition - Plan for ED Patient: Disposition: Home or Assisted Living Chief Complaint: Trauma Instructions: ED Fx Finger Open Prescriptions: Cephalexin [Keflex] 500 mg PO Q6 #20 cap Hydrocodone/Acetaminophen [Sloan 5-325 Tablet] 1 - 2 ea PO 4X/DAY PRN PRN 3 Days #20 tab PRN Reason: Pain Referrals: Jason Chambers MD [Primary Care Provider] - Additional Instructions: Keep wound clean and no soaking in dirty water. Ice and elevate. Motrin and/or Sloan for pain. Keep wound clean and dry. Watch for any signs of infection. Finish the antibiotic. What to do if you have Problems For any increased pain, shortness of breath, bleeding, nausea or vomiting, chest pain, or any unexpected problems, contact your Primary Care Provider. Call [facility] [facility] ([phone]) or report to the closest Emergency Room. Call 911 if necessary. 07/31/18 1545 <Electronically signed by Tommie Kenny MD> Date Tommie Kenny MD Cosigner Signature (If Indicated): Date CC: Jason Chambers MD DISCHARGE INSTRUCTION Observed: 07/31/2018 Status: F Source: WEST 3:45 PM [facility] REPOSITORY [facility] Medical Records Department [address] [place] [address] Discharge Instruction 07/31/18 1510 MR#: [id number] Acct: [id number] Name: GRICELDA EID Rep #: [id number] : 1965 53 From: Tommie Kenny MD PCP: aJson Chambers MD Status: REG ER ED Disposition - Plan for ED Patient: Disposition: Home or Assisted Living Chief Complaint: Trauma Instructions: ED Fx Finger Open Prescriptions: Cephalexin [Keflex] 500 mg PO Q6 #20 cap Hydrocodone/Acetaminophen [Sloan 5-325 Tablet] 1 - 2 ea PO 4X/DAY PRN PRN 3 Days #20 tab PRN Reason: Pain Referrals: Bailey Metzger DO [STAFF PHYSICIAN] - As soon as possible Additional Instructions: Keep wound clean and no soaking in dirty water. Ice and elevate. Motrin and/or Sloan for pain. Keep wound clean and dry. Watch for any signs of infection. Finish the antibiotic. Stitches out in 10-14 days. What to do if you have Problems For any increased pain, shortness of breath, bleeding, nausea or vomiting, chest pain, or any unexpected problems, contact your Primary Care Provider. Call [employer] [facility] [employer] [facility] ([phone]) or report to the closest Emergency Room. Call 911 if necessary. 07/31/18 1545 <Electronically signed by Tommie Kenny MD> Date Tommie Kenny MD Cosigner Signature (If Indicated): Date CC: Jason Chambers MD FINGER(S) MIN 2 VIEWS Observed: 07/31/2018 Status: F Source: WEST 1:23 PM [facility] REPOSITORY [facility] Imaging Services [address] [place] [address] Finger(s) Min 2 Views MR#: [id number] Acct: [id number] Name: GRICELDA EID Rep #: [id number] : 1965 M 53 From: Dave Baez MD PCP: Jason Chambers MD Status: REG ER Study: Finger(s) Min 2 Views Date of Exam: 07/31/18 Exam# [id number] Ordering Dr: Tommie Kenny MD STUDY: X-RAY - RIGHT HAND, ATTENTION THIRD FINGER REASON FOR EXAM: Male, 53 years old. Crush injury. Pain. TECHNIQUE: 3 view(s) of the finger were obtained. COMPARISON: None. FINDINGS: Normal metacarpal head. Normal metacarpophalangeal joint. Normal proximal phalanx. Normal middle phalanx. There is a comminuted minimally displaced fracture of the distal phalanx of the third digit. Normal proximal interphalangeal joint. Normal distal interphalangeal joint. RAD/Finger(s) Min 2 Views IMPRESSION: Third distal phalangeal fracture. Electronically Signed: Dave Baez MD at 14:48 EDT , Service support , CC: Tommie Kenny MD; Jason Chambers MD Crystal Slicer: Signed ALLERGIES ALLERGIES DATE TYPE / CODE NAME / CODE REACTION SEVERITY SOURCE 11/13/2018 Drug No Known Unknown Julio [facility] Allergy/4160 Allergies/F00 Hospital 75171(SNOMED [id number](RXNOR Repository CT) M) ENCOUNTERS ENCOUNTERS ADMIT/DISCHARGE ACCOUNT ADMITTING ENCOUNTER LOCATION SOURCE NUMBER CLASS 12/11/2018 [id number] [place] 1 [facility] ing:LABSPEC Repository 12/11/2018/ [id number] Ambulatory BMSBuilding:B [place] 9 3 [facility] Repository 12/11/2018 [id number] Ambulatory [place] 2 [facility] ing:OT Repository 11/30/2018/ [id number] Ambulatory BMSBuilding:B [place] 9 7 [facility] Repository 11/15/2018/ [id number] Ambulatory [place] 8 1 [facility] ing:SDCRoom: Repository AC06 10/17/2018 [id number] Ambulatory [place] 2 [facility] ing:HPRAD Repository 10/17/2018/ [id number] Ambulatory BMSBuilding:B [place] 8 6 [facility] Repository 10/02/2018/ [id number] Emergency [place] 8 6 [facility] ing:ED Repository 08/18/2018/ [id number] Ambulatory BMSBuilding:B [place] 8 9 [facility] Repository 08/14/2018/ [id number] Ambulatory [place] 8 8 [facility] ing:OT Repository 08/04/2018/ [id number] Ambulatory BMSBuilding:B [place] 8 8 [facility] Repository 07/31/2018/ [id number] Emergency [place] 8 6 [facility] ing:ED Repository PAYERS PAYERS ENCOUNTER GUARANTOR PAYER SUBSCRIBER SOURCE 12/11/2018 GRICELDA Morris Primary TOBY L Jul[place] [id number] Insurance:ANTHEMPolic POMARICODOB: Community VINCENT y Number: [id number] [facility]rin[facility] [id number] [place]ository [place] [id number]: Date:5978-85-84[address]W, [place] () [address]YS: 12/11/2018 Secondary NOT GIVENUNK Julio Insurance:SELF PAY [facility] Number: Effective Repository Date:2018-12-11 12/11/2018 GRICELDA Morris Primary TOBY L [place] [id number] Insurance:ANTHEMPolic POMARICODOB: [facility] VINCENT y Number: [id number] Shriners [id number] [place]ository [place] [address]Jta: Date:5056-74-40[address], [facility]) [address]SU: 12/11/2018 Secondary NOT GIVENUNK [place] Insurance:SELF PAY [facility] Number: Effective Repository Date:2018-11-30 12/11/2018 GRICELDA Morris Primary TOBY L [place] [id number] Insurance:ANTHEMPolic POMARICODOB: Community VINCENT y Number: [id number] Shriners [id number] [place]ository [place] [id number]: Date:2661-40-27LX [address] () [address]OV: 12/11/2018 Secondary NOT GIVENUNK Julio Insurance:SELF PAY [facility] Number: Effective Repository Date:2018-11-15 11/30/2018 GRICELDA Morris Primary TOBY L [place] [id number] Insurance:ANTHEMPolic POMARICODOB: Community VINCENT y Number: [id number] Shriners [id number] [place]ository [place] [address]Hrz: Date:1826-26-68XR [address]ENMCMIX[address] KEITH () [address]RZ: 11/30/2018 Secondary NOT GIVENUNK Julio Insurance:SELF PAY [facility] Number: Effective Repository Date:2018-11-29 11/15/2018 GRICELDA Morris Primary TOBY L [place] [id number] Insurance:ANTHEMPolic POMARICODOB: Community VINCENT y Number: [id number] Shriners [id number] [place]ository [place] [id number]: Date:5280-03-18HF [address]ZOYRQBAA[address] () [address]CN: 11/15/2018 Secondary NOT GIVENUNK [place] Insurance:SELF PAY [facility] Number: Effective Repository Date:2018-10-25 10/17/2018 GRICELDA Morris Primary TOBY L [place] [id number] Insurance:ANTHEMPolic POMARICODOB: Community VINCENT y Number: [id number] Shriners [id number] Repository [place] [phone]: Date:0943-53-16[address] KEITH () [address]EW: 10/17/2018 Secondary NOT GIVENUNK Julio Insurance:SELF PAY [facility] Number: Effective Repository Date:2018-10-17 10/17/2018 GRICELDA Morris Primary TOBY L [place] [id number] Insurance:ANTHEMPolic POMARICODOB: Community VINCENT y Number: [id number] Shriners [id number] [place]ository [place] [phone]: Date:8057-48-39[address]FPGNVVVANA KEITH () [address]CK: 10/17/2018 Secondary NOT GIVENUNK [place] Insurance:SELF PAY [facility] Number: Effective Repository Date:2018-10-17 10/02/2018 GRICELDA Alexandra Primary TOBY L [place] [id number] Insurance:ANTHEMPolic POMARICODOB: Community VINCENT y Number: [id number] Shriners [id number] Repository [place] [phone]: Date:7912-36-66ZS [address]EEWKNQGA[address] () [address]YB: 10/02/2018 Secondary NOT GIVENUNK [place] Insurance:SELF PAY [facility] Number: Effective Repository Date:2018-10-02 08/18/2018 GRICELDA Morris Primary TOBY L [place] [id number] Insurance:ANTHEMPolic POMARICODOB: Community VINCENT y Number: [id number] Shriners [id number] Repository [place] [address]Ouj: Date:3818-85-72JU [address]QIBNCMN, [place] () [address]HB: 08/18/2018 Secondary NOT GIVENUNK [place] Insurance:SELF PAY [facility] Number: Effective Repository Date:2018-08-18 08/14/2018 GRICELDA Morris Primary TOBY L [place] [id number] Insurance:ANTHEMPolic POMARICODOB: Community VINCENT y Number: [id number] Shriners [id number] Repository [place] [address]Ivy: Date:5985-27-19NA [address]OOYRMRNA[address] KE[address] () [address]XV: 08/14/2018 Secondary NOT GIVENUNK Julio Insurance:SELF PAY [facility] Number: Effective Repository Date:2018-08-04 08/04/2018 GRICELDA Morris Primary TOBY L [place] [id number] Insurance:ANTHEMPolic POMARICODOB: Community VINCENT y Number: [id number] Shriners [id number] Repository [place] [address]Zeu: Date:2266-30-57ID [address]KPKJPDY, [place] () [address]KD: 08/04/2018 Secondary NOT GIVENUNK [place] Insurance:SELF PAY [facility] Number: Effective Repository Date:2018-08-04 07/31/2018 GRICELDA Alexandra Primary TOBY L [place] [id number] Insurance:ANTHEMPolic POMARICODOB: [facility] y Number: [id number] Shriners [id number] Repository [place] [address]Hev: Date:6470-39-37LW [address]DZXPKCA, [place] () [address]GR: 07/31/2018 Secondary NOT GIVENUNK [place] Insurance:SELF PAY [facility] Number: Effective Repository Date:2018-07-31
== END 2018-11-15 09:07 | disposition home or self-care (01) ==
LOC: SDC 07:08 → AC 07:09
PROVIDERS: Family Provider Family Medicine; PCP Family Medicine; Referring Provider Orthopaedic Surgery; Visit Provider Orthopaedic Surgery
PROC: (CPT 11750; principal; 2018-11-15 08:05)
DX: L60.3 Nail dystrophy (principal); S67.19 Crushing injury of other finger(s); X58.XXXS Exposure to other specified factors, sequela; F17.200 Nicotine dependence, unspecified, uncomplicated
CPT/HCPCS: 11750

== ENCOUNTER 2018-12-11 13:00 | Outpatient (RCR) | payer BC, SELFPAY ==
--- NOTE | 2018-11-23 17:09 | HP.OTEVAL ---
Patient's Visit Information GRICELDA EID is a 53 year old M, referred to Occupational Therapy by Bailey Metzger DO, with a diagnosis of p/o nail removal. Date of Evaluation: 11/23/18 Occupational Therapist: Xiomy Sandhu - Subjective Subjective: Pt seen for initial occupational therapy evaluation for wound debridement after smashing R middle finger in July and had nail removed 11/15/18. Right hand dominent. Pt states R middle finger l[place] often and he has difficulty typing for his job due to the bandage on his finger. - Pain R tip middle finger 5 - Objective Objective/Observation: wound nail bed tip of R middle finger, demo good healing. - ROM PIP: R middle finger PIP 0/80 L PIP 0/92' DIP: R middle finger DNT, L 0/57' - Edema PIP: Slight edema noted R middle finger PIP DIP: Edema noted R middle finger DIP - Sensation Sensation Comments: No numbness or tingling - Goals Goal:: Pt will progress with R middle finger PIP AROM flexion by 10' and DIP flexion by 15' to increase functional independence to type on computer and complete BADLs. Goal:: Pt will be educated on wound care and self bandaging techniques for R middle finger at home with good understanding and demo 100%x Goal:: Pt will be educated on HEP for R middle finger with good understanding and demo 100%x to increase AROM R middle finger - Rehabilitation General Assessment: Pt demo wound R middle finger nail from nail removal. Pt would benefit from direct occupational therapy services for wound debridement, education on wound care for at home and increase AROM R middle finger Rehabilitation Potential: Excellent - Anticipated Interventions Anticipated Interventions: A/AAROM/PROM, Wound Care, Education re Diagnosis, Education re Self-Bandaging Techniques, Education re Skin Care and Precautions, Home Program - Visit Plan Frequency: 1-2x /Week Duration: 4-6 Weeks General Plan: Pt would benefit from direct occupational therapy services for wound debridement, education on wound care for at home, self bandaging techniques and increase AROM R middle finger TEXT: Thank you for the opportunity to evaluate your patient. For Medicare and Medicare HMO plans, please review the plan of care and approve it. It will need to be FAXED BACK to us at [phone] for Medicare purposes. Please let me know if there are questions or concerns regarding this plan of care. Physician Signature: Date:
--- NOTE | 2019-03-21 14:10 | HP.OT.NRP ---
HP - Discharge Summary - Patient Information GRICELDA EID was seen in my office for initial evaluation on 11/23/18. The following Plan of Care was established for this patient: Initial Frequency: 1-2x /Week Initial Duration: 4-6 Weeks Plan: cont w/ prior POC - Anticipated Interventions Anticipated Interventions: A/AAROM/PROM, Wound Care, Education re Diagnosis, Education re Self-Bandaging Techniques, Education re Skin Care and Precautions, Home Program This patient was last seen in our office 12/11/18. Pertinent comments regarding their Occupational therapy will appear below: Pt last seen on 12/11/18. pt has not returned for further sessions,Pt D/C at this time. At this point I will be discontinuing this patient from occupational therapy. I would be happy to see this patient again in the future if found appropriate by the physician. Thank you! Etta Mariscal, OTR/L, CHT
== END 2019-03-11 19:00 | disposition home or self-care (01) ==
LOC: OT 13:00
PROVIDERS: Family Provider Family Medicine; PCP Family Medicine; Referring Provider Orthopaedic Surgery; Visit Provider Orthopaedic Surgery
DX: Z98.890 Other specified postprocedural states (principal)
CPT/HCPCS: 97165; 97530

== ENCOUNTER → 2018-12-11 16:28 | Outpatient (CLI) | payer BC, SELFPAY ==
[2018-12-11 13:59] VITALS: BMI 27.1
== END ==
PROVIDERS: Family Provider Family Medicine; PCP Family Medicine; Visit Provider Physician Assistant
DX: L03.019 Cellulitis of unspecified finger (principal)
CPT/HCPCS: 87070; 87075; 87205

== ENCOUNTER → 2019-05-02 08:40 | Outpatient (CLI) | payer BC, SELFPAY ==
[2018-12-11 13:59] VITALS: BMI 27.1
[2019-05-02 12:35] LABS: Cholesterol 275 mg/dL (200); Glucose 98 mg/dL (74-106); High Density Lipoprotein 37 mg/dL; Triglycerides 186 mg/dL; Very Low Density Lipoprotein 37 mg/dL (5-40)
== END ==
PROVIDERS: Family Provider Family Medicine; PCP Family Medicine; Visit Provider Family Medicine
DX: Z13.220 Encounter for screening for lipoid disorders (principal); Z13.1 Encounter for screening for diabetes mellitus; Z83.3 Family history of diabetes mellitus
CPT/HCPCS: 36415; 80061; 82947

== ENCOUNTER → 2019-06-05 14:23 | Outpatient (CLI) | payer BC, SELFPAY ==
[2018-12-11 13:59] VITALS: BMI 27.1
[2019-06-05 13:59] VITALS: BMI 28.2
--- NOTE | 2019-06-05 14:28 | CT_ITS ---
STUDY: LOW DOSE CT LUNG CANCER SCREENING REASON FOR EXAM: Male, 54 years old. 35 pack-year smoking history. RADIATION DOSAGE (If Supplied By Facility): CTDIvol = ( 3.02 ) mGy, DLP = ( 97.04 ) mGycm TECHNIQUE: No contrast was administered. Low dose technique was utilized (average mAS-38 and kVp 120). 1.25 mm axial source images with a slice interval of 1.25-mm were reconstructed in lung windows. 2.5 mm axial source images with a slice interval of 2.5-mm were reconstructed in lung windows. 5.0 mm axial source images with a slice interval of 5.0-mm were reconstructed in soft tissue windows. Nodule measured using lung windows on PACS and/or independent workstation with automated measurement of minimum and maximum diameter. Nodule measurement reported as average diameter rounded to the nearest whole number. Growth is defined as an increase ins size of greater than 1.5 mm. COMPARISON: None. NODULES: No suspicious nodules are seen. Total lung nodules (excluding granulomas): Emphysema: No significant emphysema is seen. Minimal increased markings in the posterior segment of the left lower lobe suggest some mild scarring. Endobronchial lesion: None. Aorta: Unremarkable. Coronary arteries: Coronary artery calcification. Mediastinal nodes: Small mediastinal lymph nodes. Other chest and abdominal findings: CT/Low Dose CT Lung Screening IMPRESSION: Lung-RADS category 2 - Continue annual screening with LDCT in 12 months. IMPORTANT NOTES FOR USE: ACR Lung-RADS Version 1.0 Assessment Categories Release Date: March 25, 2014 Category: Coded 0-4 bases on nodule(s) with highest degree of suspicion. Negative screen is defined as categories 1 and 2; a positive screen is defined as categories 3 and 4. Category 3 and 4A nodules that are unchanged on interval CT should be coded as category 2, and individuals returned to screening in 12 months. Category 4X: Category 3 or 4 nodules with additional imaging findings that increase the suspicion of lung cancer, such as spiculation, GGN that doubles in size in 1 year, enlarged lymph notes, etc. Category Modifiers: S (significant finding unrelated to lung cancer) and C (prior history of treated lung cancer) may be added to the 0-4 Lung-RADS Electronically Signed: Manpreet Pascual, at 15:01 EDT , Service support ,
== END ==
PROVIDERS: Family Provider Family Medicine; PCP Family Medicine; Referring Provider Nurse Practitioner Family; Visit Provider Nurse Practitioner Family
DX: F17.209 Nicotine dependence, unspecified, with unspecified nicotine-induced disorders (principal); Z12.2 Encounter for screening for malignant neoplasm of respiratory organs
CPT/HCPCS: G0297

== ENCOUNTER → 2020-06-10 15:48 | Outpatient (CLI) | payer BC, SELFPAY ==
[2019-06-05 13:59] VITALS: BMI 28.2
--- NOTE | 2020-06-10 15:48 | CT_ITS ---
STUDY: LOW DOSE CT LUNG CANCER SCREENING REASON FOR EXAM: Male, 55 years old. LUNG CANCER SCREENING. 1 PPD X 36 YEARS RADIATION DOSAGE (If Supplied By Facility): CTDIvol = ( 3.02 ) mGy, DLP = ( 93.27 ) mGycm TECHNIQUE: No contrast was administered. Low dose technique was utilized (average mAS-38 and kVp 120). 1.25 mm axial source images with a slice interval of 1.25-mm were reconstructed in lung windows. 2.5 mm axial source images with a slice interval of 2.5-mm were reconstructed in lung windows. 5.0 mm axial source images with a slice interval of 5.0-mm were reconstructed in soft tissue windows. Nodule measured using lung windows on PACS and/or independent workstation with automated measurement of minimum and maximum diameter. Nodule measurement reported as average diameter rounded to the nearest whole number. Growth is defined as an increase ins size of greater than 1.5 mm. COMPARISON: June 05, 2019 NODULES: Total lung nodules (excluding granulomas): 0 Emphysema: None Endobronchial lesion: No Aorta: Normal Coronary arteries: Stable coronary artery calcifications. Heart: Pulmonary artery: Normal Mediastinal nodes: Stable nonspecific subcentimeter mediastinal lymphadenopathy. Other chest and abdominal findings: None CT/Low Dose CT Lung Screening IMPRESSION: Lung-RADS category 1 - Continue annual screening with LDCT in 12 months. IMPORTANT NOTES FOR USE: ACR Lung-RADS Version 1.0 Assessment Categories Release Date: March 25, 2014 Category: Coded 0-4 bases on nodule(s) with highest degree of suspicion. Negative screen is defined as categories 1 and 2; a positive screen is defined as categories 3 and 4. Category 3 and 4A nodules that are unchanged on interval CT should be coded as category 2, and individuals returned to screening in 12 months. Category 4X: Category 3 or 4 nodules with additional imaging findings that increase the suspicion of lung cancer, such as spiculation, GGN that doubles in size in 1 year, enlarged lymph notes, etc. Category Modifiers: S (significant finding unrelated to lung cancer) and C (prior history of treated lung cancer) may be added to the 0-4 Lung-RADS Electronically Signed: Neri Cash DO at 21:56 EDT Tel [phone], Service support ,
== END ==
PROVIDERS: PCP Family Medicine; Referring Provider Nurse Practitioner Family
DX: Z12.2 Encounter for screening for malignant neoplasm of respiratory organs (principal); Z87.891 Personal history of nicotine dependence
CPT/HCPCS: G0297

== ENCOUNTER → 2021-07-14 14:47 | Outpatient (CLI) | payer OTHER, SELFPAY ==
[2020-06-10 15:24] VITALS: BMI 28.2
--- NOTE | 2021-07-14 14:56 | CT_ITS ---
STUDY: LOW DOSE CT LUNG CANCER SCREENING REASON FOR EXAM: Male, 56 years old. Lung cancer screening -- 38 pack year history; current smoker;asymptomatic RADIATION DOSAGE (If Supplied By Facility): CTDIvol = ( 3.02 ) mGy, DLP = ( 106.46 ) mGycm TECHNIQUE: No contrast was administered. Low dose technique was utilized (average mAS-38 and kVp 120). 1.25 mm axial source images with a slice interval of 1.25-mm were reconstructed in lung windows. 2.5 mm axial source images with a slice interval of 2.5-mm were reconstructed in lung windows. 5.0 mm axial source images with a slice interval of 5.0-mm were reconstructed in soft tissue windows. Nodule measured using lung windows on PACS and/or independent workstation with automated measurement of minimum and maximum diameter. Nodule measurement reported as average diameter rounded to the nearest whole number. Growth is defined as an increase ins size of greater than 1.5 mm. COMPARISON: Comparison is made with prior examination dated 06/10/2020. NODULES: No suspicious nodules are seen. Emphysema: Endobronchial lesion: None Aorta: Unremarkable. Coronary arteries: Coronary artery calcification. Heart: Unremarkable. Pulmonary artery: Unremarkable. Mediastinal nodes: Stable small benign appearing mediastinal lymph nodes. Other chest and abdominal findings: CT/Low Dose CT Lung Screening IMPRESSION: Lung-RADS category 2 - Continue annual screening with LDCT in 12 months. IMPORTANT NOTES FOR USE: ACR Lung-RADS Version 1.1 Assessment Categories Release Date: 2018 Category: Coded 0-4 bases on nodule(s) with highest degree of suspicion. Negative screen is defined as categories 1 and 2; a positive screen is defined as categories 3 and 4. Category 3 and 4A nodules that are unchanged on interval CT should be coded as category 2, and individuals returned to screening in 12 months. Category 4X: Category 3 or 4 nodules with additional imaging findings that increase the suspicion of lung cancer, such as spiculation, GGN that doubles in size in 1 year, enlarged lymph notes, etc. Category Modifiers: S (significant finding unrelated to lung cancer) Electronically Signed: Manpreet Pascual MD at 15:32 EDT , Service support ,
== END ==
PROVIDERS: PCP Family Medicine; Referring Provider Nurse Practitioner Family; Visit Provider Nurse Practitioner Family
DX: Z12.2 Encounter for screening for malignant neoplasm of respiratory organs (principal); F17.209 Nicotine dependence, unspecified, with unspecified nicotine-induced disorders
CPT/HCPCS: 71271

== ENCOUNTER → 2021-10-12 | Outpatient (CLI) | payer OTHER, SELFPAY | END | disposition home or self-care (01) | PROVIDERS: PCP Family Medicine; Visit Provider Family Medicine | DX: U07.1 COVID-19 (principal) | CPT/HCPCS: 87635; U0005; U0003 ==

== ENCOUNTER 2021-10-14 15:10 | Outpatient (CLI) | payer OTHER, SELFPAY ==
[2021-10-14 15:28] VITALS: BP 123/87; PULSE 78; RESP 16; TEMP 36.6; O2SAT 100; BMI 28.1
[2021-10-14] MEDS: 0.9% Saline Lock 10 ML Syringe IV (15:28)
[2021-10-14 16:10] VITALS: BP 115/84; PULSE 73; RESP 16; TEMP 36.8; O2SAT 100
[2021-10-14 17:10] VITALS: BP 122/69; PULSE 71; RESP 16; TEMP 36.8; O2SAT 97
== END 2021-10-14 17:10 | disposition home or self-care (01) ==
LOC: MS3OUT 15:10 → MS3 15:11
PROVIDERS: PCP Family Medicine; Referring Provider Nurse Practitioner Adult Health; Visit Provider Nurse Practitioner Adult Health
DX: Z23 Encounter for immunization (principal); U07.1 COVID-19
CPT/HCPCS: J7050; M0245; Q0245; A4216

== ENCOUNTER → 2022-09-07 | Outpatient (CLI) | payer OTHER, SELFPAY ==
--- NOTE | 2022-09-07 14:40 | CT_ITS ---
STUDY: LOW DOSE CT LUNG CANCER SCREENING REASON FOR EXAM: Male, 57 years old. Lung cancer screening -- and gt;30 pk yr hx;current smoker; asymptomatic RADIATION DOSAGE (If Supplied By Facility): CTDIvol = ( 2.39 ) mGy, DLP = ( 83.10 ) mGycm TECHNIQUE: No contrast was administered. Low dose technique was utilized (average mAS-38 and kVp 120). 1.25 mm axial source images with a slice interval of 1.25-mm were reconstructed in lung windows. 2.5 mm axial source images with a slice interval of 2.5-mm were reconstructed in lung windows. 5.0 mm axial source images with a slice interval of 5.0-mm were reconstructed in soft tissue windows. COMPARISON: Comparison is made with prior study dated 07/14/2021. NODULES: No suspicious nodules are seen. Emphysema: Stable mild linear scarring at the left lung base. Endobronchial lesion: None Aorta: Unremarkable. CORONARY ARTERIES: Coronary artery calcification is seen. Heart: Unremarkable Pulmonary artery: Unremarkable Mediastinal nodes: Small benign-appearing mediastinal lymph nodes. Other chest and abdominal findings: CT/Low Dose CT Lung Screening IMPRESSION: Lung-RADS category 2 - Continue annual screening with LDCT in 12 months. IMPORTANT NOTES FOR USE: ACR Lung-RADS Version 1.1 Assessment Categories Release Date: 2018 Category: Coded 0-4 bases on nodule(s) with highest degree of suspicion. Negative screen is defined as categories 1 and 2; a positive screen is defined as categories 3 and 4. Category 3 and 4A nodules that are unchanged on interval CT should be coded as category 2, and individuals returned to screening in 12 months. Category 4X: Category 3 or 4 nodules with additional imaging findings that increase the suspicion of lung cancer, such as spiculation, GGN that doubles in size in 1 year, enlarged lymph notes, etc. Category Modifiers: S (significant finding unrelated to lung cancer) N.B. : The above Results were Read Back by Manpreet Pascual MD to Lety Metz and understanding confirmed on 09/07/2022 15:02:09 (ET). Electronically Signed: Manpreet Pascual MD at 15:03 EDT ,
== END | disposition home or self-care (01) ==
LOC: CT 14:34
PROVIDERS: PCP Family Medicine; Visit Provider Nurse Practitioner Family
DX: Z12.2 Encounter for screening for malignant neoplasm of respiratory organs (principal); Z87.891 Personal history of nicotine dependence
CPT/HCPCS: 71271

== ENCOUNTER → 2023-12-13 | Outpatient (CLI) | payer OTHER, SELFPAY ==
--- NOTE | 2023-12-13 16:18 | CT_ITS ---
EXAM: CT CHEST, LUNG CANCER SCREENING WITHOUT INTRAVENOUS CONTRAST CLINICAL INDICATION: Lung cancer screening -- and gt;20 pk yr hx;current smoker; asymptomatic TECHNIQUE: Helically acquired images were obtained of the chest without intravenous contrast using low dose (LDCT) lung cancer screening protocol. This CT exam was performed using one or more of the following dose reduction techniques: automated exposure control, adjustment of the mA and/or kV according to patient size, and/or use of iterative reconstruction technique. COMPARISON: 09/07/2022 FINDINGS: LUNGS AND PLEURAL SPACES: There is minimal scarring in the left lung base. No mass. No pleural effusion or thickening. No pneumothorax. HEART: Unremarkable. Heart size is normal. No pericardial effusion. No significant coronary artery calcifications. MEDIASTINUM: Unremarkable. No mediastinal or hilar adenopathy. Esophagus is unremarkable. No hiatal hernia. THYROID: Unremarkable. No thyroid lesions. BONES/JOINTS: Unremarkable. No suspicious lytic or blastic abnormality. VASCULATURE: Unremarkable. Thoracic aorta is non-dilated. LYMPH NODES: Unremarkable. No enlarged lymph nodes. CT/Low Dose CT Lung Screening IMPRESSION: No acute pulmonary abnormality. There has been no significant change from the reference exam. Lung-RADS score: 1 - Recommend continued annual screening with a low-dose CT (LDCT) in 12 months. Electronically Signed: Sohail Zaman MD at 17:05 EST ,
--- OUTSIDE RECORDS SUMMARY | 2023-12-13 17:44 | XMS RPT_ITS | CCD ---
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 Role Phone Anayeli Macdonald Unavailable Unavailabl Jason Avery Unavailable Unavailable Problems Active Problems Problem Classification Problem Date Documented Da te Episodic/Chronic Unclassified (2 sources) Low back pain / M54.5(ICD-10) Onset: 11-14-2017 Past or Other Problems Problem Classification Problem Date Documented Da te Episodic/Chronic Spondylosis; intervertebral disc disorders; other back problems (1 source) Low back pain; Translations: [Low back pain] Onset: 11-14-2017 Episodic Encounters Encounter Date Encounter Type Care Provider Facility Start: 11-14-2017 Ambulatory Anayeli Macdonald Fa cility:[id number] Payers Date Payer Category Payer Policy ID Unknown [id number] Summary Purpose Family History No Family History Records Found Advance Directives No Advanced Directives Records Found Additional Source Comments (unrecognized sect ion and content) No Status Records Found INFORMATION SOURCE (unrecogn ized section and content) FOR RECORDS PERTAINING TO PATIENTS WHO ARE OR HAVE BEEN ENROLLED IN A CHEMICAL DEPENDENCY/SUBSTANCEABUSE PROGRAM, SOME INFORMATION MAY BE OMITTED. This clinical summary was aggregated from multiple sources. Caution should be exercised in using it in the provision of clinical care. This summary normalizes information from multiple sources, and as a consequence, information in this document may materially change the coding, format and clinical context of patient data. In addition, data may be omitted in some cases. CLINICAL DECISIONS SHOULD BE BASED ON THE PRIMARY CLINICAL RECORDS. [employer] provides no warranty or guarantee of the accuracy or completeness of information in this document.
== END | disposition home or self-care (01) ==
LOC: CT 16:17
PROVIDERS: PCP Family Medicine; Referring Provider Nurse Practitioner Family; Visit Provider Nurse Practitioner Family
DX: Z87.891 Personal history of nicotine dependence (principal); Z12.2 Encounter for screening for malignant neoplasm of respiratory organs
CPT/HCPCS: 71271

== ENCOUNTER → 2023-12-30 | Outpatient (CLI) | payer OTHER, SELFPAY ==
--- OUTSIDE RECORDS SUMMARY | 2023-12-30 08:41 | XMS RPT_ITS | CCD ---
Author Name Unknown Address [address] [place] [address] Organization [facility] Care Team Providers Care Pourer Buggy Ladle Name Role Phone Anayeli Macdonald Unavailable Unavailabl [...] Date Payer Category Payer Policy ID Unknown [id number] Summary Purpose Family History No Family History [...] BE BASED ON THE PRIMARY CLINICAL RECORDS. [employer] provides no warranty or guarantee of the accuracy or completeness of information in this document.
[2023-12-30 10:15] LABS: Absolute Lymphocyte Count 2.29 X10^3/uL (0.83-4.51); Absolute Neutrophil Count 8.5 X10^3/uL (2.0-7.7); Basophil# 0.09 X10^3/uL; Basophil% 0.7 % (0-1); Eosinophil# 0.47 X10^3/uL; Eosinophils% 3.9 % (0-5); Hematocrit 49.7 % (40-54); Hemoglobin 16.6 g/dL (13.0-16.5); Lymphocyte # 2.29 X10^3/ul (0.83-4.51); Lymphocyte % 18.9 % (19-41); Mean Corp Hgb Conc 33.4 g/dL (32-36); Mean Corpuscular Hgb 29.8 pg (27.0-32.0); Mean Corpuscular Volume 89.2 fL (80-94); Mean Platelet Vol. 9.5 fl (6.2-12.0); Monocyte# 0.71 X10^3/uL; Monocyte% 5.9 % (0-10); NRBC Flagged by Analyzer 0 % (0-5); Neutrophil # 8.47 X10^3/uL (2.7-7.7); Neutrophil % 70.1 % (47-70); Platelet Count 277 K/mm3 (150-450); RBC Distribution Width CV 13.1 % (11.6-14.6); RBC Distribution Width SD 42.8 fl (35.1-43.9); Red Blood Count 5.57 M/mm3 (4.6-6.2); White Blood Count 12.1 K/mm3 (4.4-11.0)
[2023-12-30 10:35] LABS: ALB/GLOB Ratio 1.1 RATIO (0.9-2.4); AST(SGOT) 20 U/L (15-37); Alanine Aminotransfer ALT/SGPT 32 U/L (16-61); Albumin, Serum 3.7 g/dL (3.2-5.0); Alkaline Phosphatase 74 U/L (45-117); Anion Gap 2 (5-15); BUN 13 mg/dL (7-18); BUN/Creat Ratio 12.3 RATIO (10-20); Calcium,Total 9.3 mg/dL (8.5-10.1); Chloride 104 mmol/L (98-107); Cholesterol 266 mg/dL (200); Creatinine, Serum 1.06 mg/dL (0.70-1.30); EST Glomerular Filtration Rate 76 mL/min (>60); Est Glom Filt Rate - Afr Amer 91 mL/min (>60); Globulin 3.5 g/dL (2.2-4.2); Glucose 104 mg/dL (74-106); High Density Lipoprotein 33 mg/dL; PSA,Total - Annual Screen 3.62 ng/mL (0.00-4.00); Potassium 4.1 mmol/L (3.5-5.1); Protein, Total 7.2 g/dL (6.4-8.2); Sodium Level 135 mmol/L (136-145); Triglycerides 215 mg/dL; Very Low Density Lipoprotein 43 mg/dL (5-40)
== END | disposition home or self-care (01) ==
LOC: MTLAB 08:20
PROVIDERS: PCP Family Medicine; Referring Provider Nurse Practitioner Family; Visit Provider Nurse Practitioner Family
DX: Z00.01 Encounter for general adult medical examination with abnormal findings (principal); Z12.5 Encounter for screening for malignant neoplasm of prostate
CPT/HCPCS: 36415; 80053; 80061; 84153; 85025; G0103

== ENCOUNTER → 2024-12-18 | Outpatient (CLI) | payer BC, SELFPAY ==
--- NOTE | 2024-12-18 14:37 | CT_ITS ---
STUDY: LOW DOSE CT LUNG CANCER SCREENING REASON FOR EXAM: Male, 59 years old. and gt; 20 pk yr hx;former smoker; asymptomatic RADIATION DOSAGE (If Supplied By Facility): CTDIvol = ( 3.02 ) mGy, DLP = ( 183.82 ) mGycm TECHNIQUE: No contrast was administered. Low dose technique was utilized (average mAS-38 and kVp 120). 1.25 mm axial source images with a slice interval of 1.25-mm were reconstructed in lung windows. 2.5 mm axial source images with a slice interval of 2.5-mm were reconstructed in lung windows. 5.0 mm axial source images with a slice interval of 5.0-mm were reconstructed in soft tissue windows. COMPARISON: Comparison is made with prior study dated December 13, 2023. NODULES: Stable 2 mm partially calcified granuloma in the anterior aspect of the right upper lobe as noted on axial image #89. Emphysema: Minimal linear scarring at the lung bases. Endobronchial lesion: None Aorta: Unremarkable CORONARY ARTERIES: Coronary artery calcification is seen. Heart: Unremarkable Pulmonary artery: Unremarkable Mediastinal nodes: Small mediastinal lymph nodes Other chest and abdominal findings: CT/Low Dose CT Lung Screening IMPRESSION: Lung-RADS category 2 - Continue annual screening with LDCT in 12 months. IMPORTANT NOTES FOR USE: ACR Lung-RADS Version 1.1 Assessment Categories Release Date: 2018 Category: Coded 0-4 bases on nodule(s) with highest degree of suspicion. Negative screen is defined as categories 1 and 2; a positive screen is defined as categories 3 and 4. Category 3 and 4A nodules that are unchanged on interval CT should be coded as category 2, and individuals returned to screening in 12 months. Category 4X: Category 3 or 4 nodules with additional imaging findings that increase the suspicion of lung cancer, such as spiculation, GGN that doubles in size in 1 year, enlarged lymph notes, etc. Category Modifiers: S (significant finding unrelated to lung cancer) Electronically Signed: Manpreet Pascual MD at 15:41 EST ,
== END | disposition home or self-care (01) ==
PROVIDERS: PCP Family Medicine; Referring Provider Nurse Practitioner Family; Visit Provider Nurse Practitioner Family
DX: Z12.2 Encounter for screening for malignant neoplasm of respiratory organs (principal); Z87.891 Personal history of nicotine dependence
CPT/HCPCS: 71271

== ENCOUNTER → 2025-05-17 | Outpatient (CLI) | payer BC, SELFPAY ==
--- OUTSIDE RECORDS SUMMARY | 2025-05-17 07:32 | XMS RPT_ITS | CCD ---
Author Organization [facility] Care Team Providers Care Deputy Coroner Investigator Name Role Phone TorresYamily Kandis Unavailable UnavailJason Kevin Unavailable Unavailable Dr. Jason Chambers Referring Provider Unavailable Isaías MUSIC TYPOGRAPHER, MUSIC TYPOGRAPHER-C Lety Attending Provider [phone] Dr. Sylvia Victor Primary Care Provider [phone] Isaías MUSIC TYPOGRAPHER, MUSIC TYPOGRAPHER-C Lety Referring Provider Isaías MUSIC TYPOGRAPHER, Lety Referring Unavailable Isaías MUSIC TYPOGRAPHER, Lety Attending Unavailable Sylvia Victor Primary Care Unavailable Sylvia Victor Primary Care Unavailable Isaías MUSIC TYPOGRAPHER, Lety Referring Unavailable Iasías MUSIC TYPOGRAPHER, Lety Attending Unavailable Medications Current Medications Medication Drug Class(es) Dates Sig (Normalized) Sig (Original) DULoxetine 60 mg delayed release oral capsule (4 sources) Serotonin and Norepinephrine Reuptake Inhibitor Start: 06-10-2020 take 1 capsule by mouth once daily Duloxetine (Cymbalta) 60 mg capsule,delayed release(DR/EC) Active 60 MG PO DAILY June 09, 2020 11:00pm Start: 07-31-2018 End: 06-05-2019 take 60-120 mg by mouth once daily Duloxetine Discontinued 60 - 120 MG PO DAILY July 30, 2018 11:00pm June 05, 2019 12:51pm predniSONE 10 mg oral tablet (4 sources) Start: 09-07-2022 take 10 mg by mouth once daily Prednisone Active 10 MG PO DAILY September 06, 2022 11:00pm Start: 10-02-2018 End: 10-17-2018 take 4 tablets by mouth once daily, then take 3 tablets by mouth once daily, then take 2 tablets by mouth once daily, then take 1 tablet by mouth once daily, then take 1 tablet by mouth every other day Prednisone Discontinued 10 MG PO DIRECTED 33 October 02, 2018 12:00am October 17, 2018 3:40pm Take 4 tablets daily for 3 days, then 3 daily for 3 days, then 2 daily for 3 days, then 1 a day for 3 days then 1 QOD for 3 doses. Completed/Discontinued Medications Medication Drug Class(es) Dates Sig (Normalized) Sig (Original) acetaminophen 325 mg / HYDROcodone bitartrate 5 mg oral tablet (4 sources) Opioid Agonist Start: 11-15-2018 End: 11-20-2018 take 1 tablet by mouth every six hours as needed for pain Hydrocodone-Acetami nophen Discontinued 1 - 2 TABLET PO EVERY 6 HOURS NEEDED 14 November 15, 2018 12:00November 20, 2018 12:08am take 1 tab by mouth every 6 hours as needed for pain, stop all othe tylenol and narcs Start: 07-31-2018 End: 10-17-2018 Hydrocodone-Acetaminophen Di scontinued 1 - 2 EACH PO 4 TIMES DAILY NEEDED 20 July 30, 2018 11:00pm October 17, 2018 3:39pm cephalexin 500 mg oral tablet (8 sources) Cephalosporin Antibacterial Start: 12-11-2018 End: 06-10-2020 take 1 tablet by mouth every six hours cephalexin 500 mg tablet Discontinued 500 MG PO EVERY 6 HOURS December 11, 2018 12:00am June 10, 2020 2:22pm Start: 11-30-2018 End: 12-10-2018 take 1 tablet by mouth every six hours at mealtime Cephalexin Discontinued 500 MG PO .QID 40 November 30, 2018 12:00am December 10, 2018 12:08am take one tab by mouth with food every 6 hours for 10 days, call with concerns Start: 08-04-2018 End: 10-17-2018 take 1 tablet by mouth every six hours cephalexin 500 mg tablet Discontinued 500 MG PO EVERY 6 HOURS August 03, 2018 11:00pm October 17, 2018 3:39pm Start: 07-31-2018 End: 10-17-2018 take 500 mg by mouth every six hours Cephalexin Discontinued 500 MG PO EVERY 6 HOURS July 30, 2018 11:00pm October 17, 2018 3:39pm doxycycline hyclate 100 mg oral capsule (4 sources) Tetracycline-class Drug Start: 12-11-2018 End: 06-10-2020 take 100 mg by mouth twice daily Doxycycline Hyclate Discontinued 100 MG PO TWICE A DAY December 11, 2018 12:00am June 10, 2020 2:22pm Start: 10-02-2018 End: 10-17-2018 take 100 mg by mouth twice daily Doxycycline Monohydrate Discontinued 100 MG PO TWICE A DAY October 02, 2018 12:00am October 17, 2018 3:39pm Problems Active Problems Problem Classification Problem Date Documented Date Episodic/Chronic Coronary atherosclerosis and other heart disease (1 source) Atherosclerotic heart disease of [place] coronary artery without angina pectoris; Translations: [Atherosclerotic heart disease of [place] coronary artery without angina pectoris] Onset: 01-23-2025 Chronic Other nutritional; endocrine; and metabolic disorders (2 sources) Overweight in adulthood with body mass index of 25 or more but less than 30; Translations: [Body mass index (BMI) 28.0-28.9, adult] 10-13-2021 Episodic Other screening for suspected conditions (not mental disorders or infectious disease) (5 sources) Patient encounter status; Translations: [Encounter for screening for malignant neoplasm of respiratory organs] Onset: 01-23-2025 07-14-2021 Episodic Substance-related disorders (6 sources) Tobacco dependence, continuous; Translations: [Nicotine dependence, unspecified, with unspecified nicotine-induced disorders] Onset: 01-23-2025 07-14-2021 Chronic Unclassified (2 sources) Low back pain / M54.5(ICD-10) Onset: 11-14-2017 Viral infection (2 sources) Disease caused by 2019-nCoV; Translations: [COVID-19] 10-13-2021 Episodic Past or Other Problems Problem Classification Problem Date Documented Da te Episodic/Chronic Spondylosis; intervertebral disc disorders; other back problems (1 source) Low back pain; Translations: [Low back pain] Onset: 11-14-2017 Episodic Unclassified (2 sources) pelvic fixation 06-26-2022 Unclassified (2 sources) s/p right finger nail removal 06-26-2022 Unclassified (2 sources) urethra repair 06-26-2022 Results Test Name Value Interpretation Reference Range Facility Low Dose CT Lung Screeningon 12-18-[address] Lung Screening [facility] [address] [place] [id number] Lung Screening MR#: [id number] Acct: [id number] Name: SYLVIA EID Rep #: [id number] : 1965 M 59 From: Manpreet harrell MD PCP: Dr. Sylvia Victor, DO Status: REG CLI Study: Low Dose CT Lung Screening Date of Exam: 12/18 Exam# [id number] Ordering Dr: Lety Metz NP MUSIC TYPOGRAPHER -C [id number] STUDY: LOW DOSE CT LUNG CANCER SCREENING REASON FOR EXAM: Male, 59 years old. and gt; 20 pk yr hx;former smoker; asymptomatic RADIATION DOSAGE (If Supplied By Facility): CTDIvol = ( 3.02 ) mGy, DLP = ( 183.82 ) mGycm TECHNIQUE: No contrast was administered. Low dose technique was utilized (average mAS-38 and kVp 120). 1.25 mm axial source images with a slice interval of 1.25-mm were reconstructed in lung windows. 2.5 mm axial source images with a slice interval of 2.5-mm were reconstructed in lung windows. 5.0 mm axial source images with a slice interval of 5.0-mm were reconstructed in soft tissue windows. COMPARISON: Comparison is made with prior study dated December 13, 2023. NODULES: Stable 2 mm partially calcified granuloma in the anterior aspect of the right upper lobe as noted on axial image #89. Emphysema: Minimal linear scarring at the lung bases. Endobronchial lesion: None Aorta: Unremarkable CORONARY ARTERIES: Coronary artery calcification is seen. Heart: Unremarkable Pulmonary artery: Unremarkable Mediastinal nodes: Small mediastinal lymph nodes Other chest and abdominal findings: CT/Low Dose CT Lung Screening IMPRESSION: Lung-RADS category 2 - Continue annual screening with LDCT in 12 months. IMPORTANT NOTES FOR USE: ACR Lung-RADS Version 1.1 Assessment Categories Release Date: 2018 Category: Coded 0-4 bases on nodule(s) with highest degree of suspicion. Negative screen is defined as categories 1 and 2; a positive screen is defined as categories 3 and 4. Category 3 and 4A nodules that are unchanged on interval CT should be coded as category 2, and individuals returned to screening in 12 months. Category 4X: Category 3 or 4 nodules with additional imaging findings that increase the suspicion of lung cancer, such as spiculation, GGN that doubles in size in 1 year, enlarged lymph notes, etc. Category Modifiers: S (significant finding unrelated to lung cancer) Electronically Signed: Manpreet Pascual MD at 15:41 EST , CC: TABATHA Metz; Dr. Sylvia Victor DO Ekg Tech: Signed Normal [facility] Oncology Visit Reporton 11-29 Oncology Visit Report [facility] [place] [address] OFFICE VISIT Date of Service: 12/18/24 1404 MR#: [id number] Acct: [id number] Name: SYLVIA EID Rep #: [id number] : 1965 From: Lety Metz NP MUSIC TYPOGRAPHER Felipe Age/Sex: 59/M Location: [facility] [place] Status: Signed HPI HPI Reviewed eligibility criteria: 59 year old M with a > 20 pk yr hx (1 ppd x 36 years, 3/4 ppd x 4 years) Smoking Status: Current every day smoker Decision Making Engaged in shared decision making visit utilizing a visual aid. Discussed the risks and benefits of lung cancer screening including the total radiation exposure, false positive rate, over diagnosis and potential need for follow-up diagnostic testing all associated with low-dose chest CT. Comorbidities emphysema ROS Const Denies anorexia, Denies fatigue, Denies headache(s), Denies poor appetite and Denies weight loss ENT Denies headache(s) Card Denies chest pain, Reports dyspnea on exertion and Denies palpitations Resp Reports cough (occasional, non productive ), Reports dyspnea on exertion, Denies hemoptysis and Reports wheezing GI Reports system reviewed and no additional complaints, except as documented Reports system reviewed and no additional complaints, except as documented Musc Reports system reviewed and no additional complaints, except as documented Skin/Breast Reports system reviewed and no additional complaints, except as documented Neuro Yes system reviewed and no additional complaints, except as documented and No headache(s) Psych Reports system reviewed and no additional complaints, except as documented Endo Reports system reviewed and no additional complaints, except as documented, Denies fatigue and Denies palpitations Ector/Lymph Reports system reviewed and no additional complaints, except as documented Aller/Immun Reports wheezing Exam Const General: not in acute distress HENMT Head: normocephalic and atraumatic Neck Neck: trachea midline, supple and no lymphadenopathy noted Resp Effort Inspection: normal respiratory effort and symmetric chest movement Auscultation: Bilateral: Clear to Auscultation Cardio Rate: regular rate Rhythm: regular rhythm Heart Sounds: S1 normal and S2 normal Psych Mood: euthymic mood Speech and Movement: speech and movement normal Results Results 12/18/[address] Lung Screening COMPARISON: Comparison is made with prior study dated December 13, 2023. NODULES: Stable 2 mm partially calcified granuloma in the anterior aspect of the right upper lobe as noted on axial image #89. Emphysema: Minimal linear scarring at the lung bases. Endobronchial lesion: None Aorta: Unremarkable CORONARY ARTERIES: Coronary artery calcification is seen. Heart: Unremarkable Pulmonary artery: Unremarkable Mediastinal nodes: Small mediastinal lymph nodes Other chest and abdominal findings: IMPRESSION: Lung-RADS category 2 - Continue annual screening with LDCT in 12 months. Intake Vital Signs 12/13/23 15:27 12/18/24 14:07 Height 5 ft 7 in 5 ft 7 in Weight: 181 lb 1 oz BMI 28.3 BP 137/88 H Blood Pressure Location Lt brachial Position Sitting Respiration 18 Pulse 78 Pulse Source Monitor Temp 97.8 F Temp Source Temporal Pulse Oximetry (%) 98 Oxygen Delivery Method room air Intake Visit Reasons: Lung Cancer Screening Is patient in pain?: No Allergies No Known Allergies Allergy (Verified 12/18/24 14:07) Medications ???Medication ???Instructions ???Recorded ???Confirmed ???Type duloxetine 60 mg capsule,delayed 60 mg PO DAILY 06/10/20 12/18/24 History release (Cymbalta) prednisone 10 mg tablet 10 mg PO DAILY PRN 09/07/22 12/18/24 History PFSH Medical History (Updated 12/18/24 @ 16:02 by Lety Metz MUSIC TYPOGRAPHER, MUSIC TYPOGRAPHER-C) Coronary artery calcification Relapsing polychondritis Tobacco use disorder, continuous Encounter for screening for malignant neoplasm of lung in current smoker with 30 pack year history or greater urethra repair pelvic fixation Asthma Depression Borderline high cholesterol Surgical History Hx of LASIK s/p right finger nail removal Family History Grandfather Cancer Pancreatic ca Mother Cancer, Onset Age: 60 Lung ca Grandfather Cancer prostate ca with mets to bone Grandmother Cancer Lung ca Social History Smoking Status: Current every day smoker tobacco type: cigarettes Tobacco: How many years used: 37 Electronic Cigarette Use: not used second hand exposure: No quit status: has quit before Assessment and [place] (more content not included)... Normal [facility] Absolute lymphocyte countOrd ered By: Jada Harrison on 12-30-2023 Lymphocytes Auto (Unsp spec) [#/Vol] 2.29 10*3/uL 0.83-4.51 [facility] Automated lymphocyte count a s percentage of total leukocytesOrdered By: Jada Harrison on 12-30-2023 Lymphocytes/100 WBC Auto (Unsp spec) 18.9 % 19-41 [facility] Basophil percentageOrdered B y: Jada Harrison on 12-30-2023 Basophils/100 WBC (Bld) 0.7 % 0-1 [facility] Bilirubin [Mass/Vol] 0.60 mg/dL 0.20-1.00 [facility] Comment on above: For patients on eltr ombopag therapy, use of [place] TBIL is not recommended. Chloride [Moles/Vol] 104 mmol/L 98-107 [facility] Cholesterol [Mass/Vol] 266 mg/dL <200 [facility] Comment on above: <200 mg/dL Desirable 200-240 mg/dL Borderline >240 mg/dL High Risk Eosinophils/100 WBC (Bld) 3.9 % 0-5 [facility] Glucose [Mass/Vol] 104 mg/dL 74-106 [facility] Comment on above: Fasting Glucose resu lt from 100 to 125 mg/dL suggests IMPAIRED HOMEOSTASIS per A.D.A. criteria. Hemoglobin (Bld) [Mass/Vol] 16.6 g/dL 13.0-16.5 [facility] Monocytes/100 WBC (Bld) 5.9 % 0-10 [facility] Neutrophils (Bld) [#/Vol] 8.5 10*3/uL 2.0-7.7 [facility] Neutrophils/100 WBC (Bld) 70.1 % 47-70 [facility] Potassium [Moles/Vol] 4.1 mmol/L 3.5-5.1 [facility] Protein [Mass/Vol] 7.2 g/dL 6.4-8.2 [facility] Sodium [Moles/Vol] 135 mmol/L 136-145 [facility] Triglyceride [Mass/Vol] 215 mg/dL <199 [facility] Comment on above: The drugs N-Acetylcy steine and Metamizole may falsely depress this assay.Serum Triglycerides Reference Interval Normal <150 mg/dL Borderline high 150 - 199 mg/dL High 200 - 499 mg/dL Very High > or = 500 mg/dL WBC (Bld) [#/Vol] 12.1 10*3/uL 4.4-11.[address] [facility] Determination of erythrocyte mean corpuscular volume (MCV)Ordered By: Jada Harrison on 12-30-2023 MCV (RBC) [Entitic vol] 89.2 fL 80-94 [facility] Erythrocyte distribution wid th ratioOrdered By: Jada Harrison on 12-30-2023 Erythrocyte distribution width (RBC) [Ratio] 13.1 % 11.6-14.6 [facility] Erythrocyte distribution wid th standard deviationOrdered By: Jada Harrison on 12-30-2023 Erythrocyte distribution width (RBC) [Entitic vol] 42.8 fL 35.1-43.9 [facility] Hematocrit Auto (Bld) [Volum e fraction]Ordered By: Jada Harrison on 12-30-2023 Hematocrit (Bld) [Volume fraction] 49.7 % 40-54 [facility] Immature granulocytes/100 WB C Auto (Bld)Ordered By: Jada Harrison on 12-30-2023 Immature granulocytes/100 WBC (Bld) 0.500 % 0.0-0.9 [facility] Comment on above: IG% - Immature Granu locytes (promyelocytes, myelocytes and metamyelocytes) > 1% indicates that a LEFT SHIFT is Present. Laboratory - Chemistry and C hemistry - challengeOrdered By: Jada Harrison on 12-30-2023 Albumin/Globulin [Mass ratio] 1.1 {ratio} 0.9-2.4 [facility] ALP [Catalytic activity/Vol] 74 U/L 45-117 [facility] ALT [Catalytic activity/Vol] 32 U/L 16-61 [facility] Cholesterol in HDL (Body fld) [Mass/Vol] 33 mg/dL >40 [facility] Comment on above: The drugs N-Acetylcy steine and Metamizole may falsely depress this assay. Reference Range HDL <40 mg/dL Low HDL Cholesterol HDL >or= 60 mg/dL High HDL Cholesterol Cholesterol in LDL (Body fld) [Moles/Vol] 190 mg/dL 0-130 [facility] Cholesterol in VLDL Calc [Moles/Vol] 43 mg/dL 5-40 [facility] CO2 [Moles/Vol] 29.0 mmol/L 21.0-32.0 [facility] Globulin (S) [Mass/Vol] 3.5 g/dL 2.2-4.2 [facility] Prostate specific Ag IA [Mass/Vol] 3.62 ng/mL 0.00-4.00 [facility] Comment on above: This test was perfor med using the TPSA assay method for the[facility] chemistry system. Values obtained with differentassay methods cannot be used interchangably.When changing PSA assays in the course of monitoring apatient, additional sequential testing should be carriedout to confirm baseline values. Urea nitrogen/Creatinine [Mass ratio] 12.3 mg/mg 10-20 [facility] Laboratory - Hematology and Cell countsOrdered By: Jada Harrison on 12-30-2023 MCH (RBC) [Entitic mass] 29.8 pg 27.0-32.0 [facility] MCHC (RBC) [Mass/Vol] 33.4 g/dL 32-36 [facility] Nucleated RBC/100 WBC (Bld) [Ratio] 0 % 0-5 [facility] Platelets (Bld) [#/Vol] 277 10*3/uL 150-450 [facility] No Panel InformationOrdered By: Jada Harrison on 12-30-2023 Estimated GFR (MDRD) Amer 91 mL/min >60 [facility] Comment on above: GFR Calc Estimated GFR (MDRD) Non-Af Amer 76 mL/min >60 [facility] Comment on above: Non- GFR Calc Platelet mean volume Sam-Ec ker (Bld) [Entitic vol]Ordered By: Jada Harrison on 12-30-2023 Platelet mean volume (Bld) [Entitic vol] 9.5 fL 6.2-12.0 [facility] RBC Auto (Bld) [#/Vol]Ordere d By: Jada Harrison on 12-30-2023 RBC (Bld) [#/Vol] 5.57 10*6/uL 4.6-6.[address] [facility] Serum or plasma calcium ebenezer urement (mass/volume)Ordered By: Jada Harrison on 12-30-2023 Calcium [Mass/Vol] 9.3 mg/dL 8.5-10.1 [facility] Serum or plasma creatinine m easurement (mass/volume)Ordered By: Jada Harrison on 12-30-2023 Creatinine [Mass/Vol] 1.06 mg/dL 0.70-1.30 [facility] Comment on above: The validity of the calculated GFR & GFRAA in patients over 70 years has not been determined. Clinical correlation is essential. Serum or plasma urea nitroge n measurement (mass/volume)Ordered By: Jada Harrison on 12-30-2023 Urea nitrogen [Mass/Vol] 13 mg/dL 7-18 [facility] Thin prep Papanicolaou smear with manual screeningOrdered By: Jada Harrison on 12-30-2023 Thin prep Papanicolaou smear with manual screening 3.7 g/dL 3.2-5.0 [facility] Thin prep Papanicolaou smear with manual screening 20 U/L 15-37 [facility] Thin prep Papanicolaou smear with manual screening 2 5-15 [facility] Vital Signs Date Time Vital Sign Value Performing Clinician Beau redman 12-13-2023 15:27-0500 Body height 170.[address] Gomez [facility] 12-13-2023 15:27-0500 Body mass index (BMI) [Ratio] 29.3 kg/m2 Dr. Gomez [facility] 12-13-2023 15:27-0500 Body temperature 98.4 [degF] Dr. Gomez [facility] 12-13-2023 15:27-0500 Body weight 85.[address] Gomez [facility] 12-13-2023 15:27-0500 Diastolic blood pressure 91 mm[Hg] Dr. Gomez [facility] 12-13-2023 15:27-0500 Heart rate 84 /min Dr. Gomez [facility] 12-13-2023 15:27-0500 Respiratory rate 18 /min Dr. Gomez [facility] 12-13-2023 15:27-0500 SaO2% (BldA) [Mass fraction] 97 % Dr. Gomez [facility] 12-13-2023 15:27-0500 Systolic blood pressure 143 mm[Hg] Dr. Gomez [facility] Encounters Encounter Date Encounter Type Care Provider Facility Start: 12-18-2024 End: 12-18-2024 ambulatory Sylvia LandisValente Facility:[facility] Start: 12-18-2024 End: 12-18-2024 ambulatory Lety Isaísa MUSIC TYPOGRAPHER Facility:[facility] Start: 12-30-2023 End: 12-30-2023 ambulatory MUSIC TYPOGRAPHER-C Lety Isaías MUSIC TYPOGRAPHER Work Phone: [facility] Work Phone: Start: 12-30-2023 End: 12-30-2023 Patient encounter procedure MUSIC TYPOGRAPHER-C Lety Isaías MUSIC TYPOGRAPHER Work Phone: [facility] Work Phone: Start: 12-13-2023 End: 12-13-[address] Gomez [facility] Work Phone: Start: 12-13-2023 End: 12-13-[address] Jason Chambers [facility] Work Phone: Start: 11-14-2017 Ambulatory Anayeli Macdonald Fa cility:[id number] Procedures Date Procedure Procedure Detail Performing Clinician Start: 12-13-[address] Jason Chambers Immunizations Immunization Date Immunization Notes Care Provider Fa cility 07-15-2014 tetanus and diphther ia toxoids, adsorbed, preservative free, for adult use (2 Lf of tetanus toxoid and 2 Lf of diphtheria toxoid) Dr. Jason Chambers [facility] Payers Date Payer Category Payer Self-pay [id number] 2024 Unknown 2024 Unknown [id number] 2024 Unknown [id number] 2016 Unknown [id number] Private Health Insurance [employer] [id number] Unknown [id number] Unknown [id number] Social History Date Type Detail Facility Start: [facility] Start: 1965 Sex Assigned At Male [facility] Evaluation note Note Date & Type Note Facility Evaluation note Diagnosis Onset Date [id number] acute Tobacco use disorder, continuous acute [facility] Work Phone: Summary Purpose Family History No Family History Records Found Relationship Condition Age at Onset Recorded Date/T isaiah grandfather Malignant neoplasm Unknown mother Malignant neoplasm 60 grandmother Malignant neoplasm Unknown Advance Directives No Advanced Directives Records Found Advance Directive Response Recorded Date/ Time Living Will No November 13 10:52am Power of Postpartum Rn No November 13, 2018 10:52am Chief Complaint and Reason for Visit Chief Complaint Lung Cancer Screenin g TOBACCO ABUSE Reason for Visit [id number] Tobacco use disorder, continuous Additional Source Comments (unrecognized sect ion and content) No Status Records FoundNo Status Records Found INFORMATION SOURCE (unrecogn ized section and content) DATE CREATED AUTHOR 05/23/2018 [facility] DATE CREATED AUTHOR AUTHOR'S ORGANIZ ATION 01/25/2025 [facility] Care Teams (unrecognized sec tion and content) Team Status: Active Member Role Status Dates Dr. Jason Chambers MD Family Provider Active Dr. Sylvia Victor , Primary Care Provider Active Team Status: Inactive Member Role Status Dates Dr. Jason Chambers MD Referring Provider Active Lety Metz NP, MUSIC TYPOGRAPHER-C Attending Provider Active Dr. Sylvia Victor , Primary Care Provider Active Team Status: Inactive Member Role Status Dates Lety Metz NP, REVA-C Attending Provider, Referring Provider Active Dr. Sylvia Victor , Primary Care Provider Active Team Status: Inactive Member Role Status Dates Dr. Sylvia Victor , Primary Care Provider Active Jada Harrison NP-C Attending Provider, Referring Prov ider Active Goals (unrecognized section and content) Goals may be documented in a n alternate sectionGoals may be documented in an alternate section FOR RECORDS PERTAINING TO PATIENTS WHO ARE [...] BE BASED ON THE PRIMARY CLINICAL RECORDS. [facility]. provides no warranty or guarantee of the accuracy or completeness of information in this document.
[2025-05-17 10:04] LABS: Absolute Lymphocyte Count 2.29 X10^3/uL (0.83-4.51); Basophil# 0.08 X10^3/uL; Eosinophil# 0.45 X10^3/uL; Eosinophils% 5.4 % (0-5); Hematocrit 44.4 % (40-54); Hemoglobin 15.2 g/dL (13.0-16.5); Lymphocyte # 2.29 X10^3/ul (0.83-4.51); Lymphocyte % 27.5 % (19-41); Mean Corp Hgb Conc 34.2 g/dL (32-36); Mean Corpuscular Hgb 30.3 pg (27.0-32.0); Mean Corpuscular Volume 88.6 fL (80-94); Mean Platelet Vol. 9.5 fl (6.2-12.0); NRBC Flagged by Analyzer 0 % (0-5); Neutrophil # 4.97 X10^3/uL (2.7-7.7); Neutrophil % 59.7 % (47-70); Platelet Count 251 K/mm3 (150-450); RBC Distribution Width CV 13.1 % (11.6-14.6); RBC Distribution Width SD 42.6 fl (35.1-43.9); Red Blood Count 5.01 M/mm3 (4.6-6.2); White Blood Count 8.3 K/mm3 (4.4-11.0)
[2025-05-17 11:17] LABS: ALB/GLOB Ratio 1.5 RATIO (0.9-2.4); AST(SGOT) 18 U/L (<=37); Alanine Aminotransfer ALT/SGPT 17 U/L (<=46); Albumin, Serum 3.8 g/dL (3.4-4.8); Alkaline Phosphatase 73 U/L (40-129); Anion Gap 11 (5-15); BUN 17 mg/dL (4-19); BUN/Creat Ratio 16.6 RATIO (10-20); Calcium,Total 9.2 mg/dL (7.6-11.0); Carbon Dioxide 21.7 mmol/L (21.0-32.0); Chloride 106 mmol/L (98-108); Cholesterol 241 mg/dL (<=200); Creatinine, Serum 0.99 mg/dL (0.70-1.20); EST Glomerular Filtration Rate 86 (>60); Globulin 2.6 g/dL (2.2-4.2); Glucose 94 mg/dL (70-99); High Density Lipoprotein 33 mg/dL; Low Density Lipoprotein Calc. 182 mg/dL; Potassium 4.1 mmol/L (3.3-5.1); Protein, Total 6.5 g/dL (5.9-8.4); Sodium Level 138 mmol/L (133-145); Total Bilirubin 0.46 mg/dL (0.00-1.30); Triglycerides 130 mg/dL; Very Low Density Lipoprotein 26 mg/dL (5-40); cholesterol:hdl ratio screen 7.35
[2025-05-17 11:36] LABS: PSA,Total - Annual Screen 3.19 ng/mL (0.02-4.00)
== END | disposition home or self-care (01) ==
LOC: LAB 07:29 → MTLAB 07:29
PROVIDERS: PCP Family Medicine; Referring Provider Nurse Practitioner Family; Visit Provider Nurse Practitioner Family
DX: Z00.01 Encounter for general adult medical examination with abnormal findings (principal); Z12.5 Encounter for screening for malignant neoplasm of prostate
CPT/HCPCS: 36415; 80053; 80061; 84153; 85025; G0103